=== PATIENT | female | born 1945 | race Caucasian/White ===

== ENCOUNTER 2022-04-09 19:07 | Inpatient (IN) | payer MEDICAID ==
[~2022-04-09] VITALS: Ht 139 cm; Wt 75.7 kg
[2022-04-09] MEDS ORDERED: ANTACID SUSP 30 ML UDC (MYLANTA) PO PRN (21:45)
[2022-04-09] MEDS ORDERED: NS IV 500 ML 500 ML IV PRN (21:45)
[2022-04-09] MEDS ORDERED: polyethylene glycoL POWDER 17 GM (MIRALAX) PACK PO PRN (21:45)
[2022-04-09] MEDS ORDERED: LACTULOSE SYRUP 10GM/15ML (ENULOSE) 30ML UDC PO PRN (21:45)
[2022-04-09] MEDS ORDERED: ONDANSETRON 4 MG (ZOFRAN) ORAL DISSOLVE TAB PO PRN (21:45)
[2022-04-09] MEDS ORDERED: ACETAMINOPHEN 325 MG TABLET PO PRN (21:45)
[2022-04-09] MEDS ORDERED: MELATONIN 3 MG TABLET PO PRN (21:45)
[2022-04-09] MEDS ORDERED: MILK OF MAGNESIA 400 MG/5 ML 30 ML UDC PO PRN (21:45)
[2022-04-09] MEDS ORDERED: BISACODYL 10 MG SUPP (DULCOLAX) PR PRN (21:45)
[2022-04-09] MEDS ORDERED: ONDANSETRON 4 MG/2 ML (SDV) Z0FRAN IV PRN (21:45)
[2022-04-09] MEDS ORDERED: CALCIUM CARBONATE 500 MG (TUMS) TAB.CHEW PO PRN (21:45)
--- NOTE | 2022-04-09 23:55 | Tele-ICU Progress Note ---
Progress Note HTN, HLD, DM, COPD on home O2, SIADH, chronic vicente, TIA who is being transferred from outside ER for "respiratory failure". Per outside report has had increasing SOB x1 week. EMS reported 60% on home 2L, improved on NRB (still on). Rocephin 2 g given prior to leaving NH, Lovenox 1 mg/kg at OSH tonight at 1900, ASA, metoprolol, lasix WBC 13.8 Hg 10.9 Na 128 K 4.0 Cl 89 CO2 31 BUN 13 Creat 0.34 B[place] [address] [place] [address] at 1751, 35830 at 1915 ABG 7.39/58/73/34 COVID (-) Flu (-) CXR Intersitial opacities bilaterally could reflect edema vs pneumoia. PNA in LL retrocardia region can not be ruled out. - hypoxia: patient with significant hypoxia, PaO2 only 73 on NRB. Only requires 2L at baseline. Supportive care ongoing. Empiric treatment for pneumonia. But wtth elevated troponin very suspicious for PE. CTA and LE dopplers ordered. No urgency, has already received therapuetic lovenox. - pneumonia: can not exclude on imaging. Empiric rocephin already initiated. Will send procal with AM labs. Eval parenchyma on CT, since it is being obtained for PE. Continue rocephin for now. Has been hypertensive since arrival, no evidence of shock. However, did not see lactic from ED. Will send along with cultures. Send UA and culture, high risk for UTI as well. - DM: ISS - Troponemia: local trop 5.2, correlating to hstrop of 5200<--31471<--[id number]. Requested cardiology updated who made patient NPO for possible cath in AM. In light of that, will delay CTA so she does not get 2 contrast loads within a couple hours. Already receiving therapuetic lovenox, will not alter care. ASA, metoprolol given at OSH. DNR per [place] records Focused Exam Height, Weight, BMI Height: '" Weight: lbs. oz. kg; 215.74 BMI Method: ALPHONSE HOLLAND MD Apr 09, 2022 23:55
[2022-04-10 01:47] LABS: BILIRUBIN,URINE NEGATIVE (NEGATIVE); CLARITY,URINE CLOUDY; COLOR,URINE YELLOW; GLUCOSE, URINE (UA) NEGATIVE (NEGATIVE); KETONES,URINE NEGATIVE (NEGATIVE); LEUKOCYTE ESTERASE ,URINE 3+ (NEGATIVE); NITRITE,URINE NEGATIVE (NEGATIVE); PH,URINE 5.5 (5-9); PROTEIN,URINE NEGATIVE (NEGATIVE)
[2022-04-10 01:58] LABS: BACTERIA,URINE FEW /HPF; RBC,URINE RARE /HPF; WBC,URINE 25-50 /HPF
[2022-04-10 03:18] LABS: BASOPHILS % (AUTO) 0 % (0-10); EOSINOPHILS # (AUTO) 0.1 10^3/uL (0.0-0.3); EOSINOPHILS % (AUTO) 1 % (0-10); HEMATOCRIT 33 % (35-52); HEMOGLOBIN 10.7 g/dL (11.5-16.0); LYMPHOCYTES # (AUTO) 0.7 10^3/uL (1.0-4.0); LYMPHOCYTES % (AUTO) 5 % (12-44); MEAN CORPUSCULAR HEMOGLOBIN 27 pg (25-34); MEAN CORPUSCULAR HGB CONC 32 g/dL (32-36); MEAN CORPUSCULAR VOLUME 84 fL (80-99); MEAN PLATELET VOLUME 9.9 fL (9.0-12.2); MONOCYTES # (AUTO) 1.1 10^3/uL (0.0-1.0); MONOCYTES % (AUTO) 7 % (0-12); NEUTROPHILS # (AUTO) 12.8 10^3/uL (1.8-7.8); NEUTROPHILS % (AUTO) 86 % (42-75); PLATELET COUNT 217 10^3/uL (130-400); WHITE BLOOD COUNT 14.9 10^3/uL (4.3-11.0)
[2022-04-10 03:28] LABS: POTASSIUM 3.5 MMOL/L (3.6-5.0)
[2022-04-10 03:29] LABS: CALCIUM 8.8 MG/DL (8.5-10.1)
[2022-04-10 03:34] LABS: CREATININE SERUM 0.58 MG/DL (0.60-1.30)
[2022-04-10 03:36] LABS: MAGNESIUM 1.6 MG/DL (1.6-2.4)
[2022-04-10 03:45] LABS: LYMPHOCYTES % (MANUAL) 6 %; MONOCYTES % (MANUAL) 5 %; NEUTROPHILS % (MANUAL) 88 %
[2022-04-10 03:46] LABS: POLYCHROMASIA SLIGHT
[2022-04-10] MEDS: POTASSIUM CL 10MEQ/50ML IVPB 50 ML IV SCH ×3 (06:49→09:48)
[2022-04-10] MEDS: KCL 20 MEQ TAB (K-DUR) PO SCH (06:49)
[2022-04-10] MEDS: MAGNESIUM 1 GM/100 ML IVPB 100 ML IV SCH ×3 (06:49→09:49)
[2022-04-10] MEDS: inSUlin ASPART (NovoLOG) 1 UNIT/0.01 ML (CHARGE PER UNIT) SC SCH ×4 (06:50→18:00)
--- NOTE | 2022-04-10 08:31 | Diagnostic Imaging Report ---
EXAMINATION: Chest, 1 view. HISTORY: Respiratory failure. COMPARISON: None available. FINDINGS: There is cardiomegaly with central pulmonary vascular congestion and patchy opacities throughout both lungs. There is relative sparing of the left lung apex. No large pleural effusion or pneumothorax. IMPRESSION: Cardiomegaly with central pulmonary vascular congestion and findings suggestive of pulmonary edema. Dictated by: Dictated on workstation # [id number]
[2022-04-10 08:42] LABS: ABG BASE EXCESS 15.7 MMOL/L (-2.5-2.5); ABG OXYGEN SATURATION 96 % (94-100); ABG PH 7.36 (7.37-7.43); ABG PO2 72 MMHG (79-93)
[2022-04-10 08:45] LABS: ABG PCO2 75 MMHG (35-45); ABG TCO2 44.3 MMOL/L (21.0-31.0); ALLENS TEST YES-POS; INSPIRED O2 15 L; PATIENT TEMP 36.5; VENTILATOR NO
--- NOTE | 2022-04-10 08:51 | Consultation-Cardiology ---
HPI-Cardiology Cardiology Consultation Date of Consultation 04/10/22 Date of Admission Time Seen by Provider: 08:46 Indication: Shortness of breath HPI 76-year-old lady with history of diabetes mellitus, hypertension. Started to have increasing shortness of breath. Came into the emergency room at [facility] and she was hypoxemic. She was started on oxygen. Noted to have EKG changes and elevated troponin and she was transferred to our institution. Patient denied any chest pain but had some discomfort in the past few weeks in her chest. Reported that she had a heart cath many years in the past in [facility] and she was told that they could not open her artery or if she did not need intervention. Patient is not sure about that condition but she is confident that she did not have a stent placed. 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 No chest pain usually. No syncope or near syncopal episode. Patient has been hypoxemic since admission. Home Medications & Allergies Allergies: Coded Allergies: No Allergy Information Available (Unverified , 04/09/22) Home Medication List Reviewed: Yes HMW-Gtojkc-Mbpthm Hx Patient Social History Employed/Student: retired Smoking Status: Former Smoker Have you traveled recently?: No Alcohol Use?: No Past Medical History Discussed below Family Medical History Significant Family History: No Pertinent Family Hx Review of Systems-General Review of Systems Constitutional: see HPI, malaise, weakness EENTM: see HPI Respiratory: see HPI; No cough, No dyspnea on exertion, No hemoptysis, No orthopnea, No phlegm; short of breath; No stridor, No wheezing, No other Cardiovascular: see HPI, chest pain; No edema, No Hx of Intervention, No palpitations, No syncope, No vascular heart diseas, No other Gastrointestinal: no symptoms reported, see HPI Genitourinary: no symptoms reported, see HPI Musculoskeletal: no symptoms reported, see HPI Skin: no symptoms reported, see HPI Psychiatric/Neurological: No Symptoms Reported, See HPI Reviewed Test Results Reviewed Test Results Lab Laboratory Tests Test 04/09/22 22:08 04/09/22 23:42 04/09/22 23:57 04/10/22 01:40 Range/Units Troponin I 5.233 *H <0.028 NG/ML Glucometer 131 H 70-110 MG/DL Lactic Acid Level 0.88 0.50-2.00 MMOL/L Urine Color YELLOW Urine Clarity CLOUDY Urine pH 5.5 5-9 Urine Specific Alexander 1.020 1.016-1.022 Urine Protein NEGATIVE NEGATIVE Urine Glucose (UA) NEGATIVE NEGATIVE Urine Ketones NEGATIVE NEGATIVE Urine Nitrite NEGATIVE NEGATIVE Urine Bilirubin NEGATIVE NEGATIVE Urine Urobilinogen 0.2 < = 1.0 MG/DL Urine Leukocyte Esterase 3+ H NEGATIVE Urine RBC (Auto) TRACE-I H NEGATIVE Urine RBC RARE /HPF Urine WBC 25-50 H /HPF Urine Squamous Epithelial Cells 5-10 /HPF Urine Crystals NONE /LPF Urine Bacteria FEW H /HPF Urine Casts PRESENT /LPF Urine Hyaline Casts 2-5 H /LPF Urine Mucus NEGATIVE /LPF Urine Culture Indicated YES Test 04/10/22 03:02 04/10/22 06:36 04/10/22 08:35 Range/Units White Blood Count 14.9 H 4.3-11.0 10^3/uL Red Blood Count 4.00 3.80-5.11 10^6/uL Hemoglobin 10.7 L 11.5-16.0 g/dL Hematocrit 33 L 35-52 % Mean Corpuscular Volume 84 80-99 fL Mean Corpuscular Hemoglobin 27 25-34 pg Mean Corpuscular Hemoglobin Concent 32 32-36 g/dL Red Cell Distribution Width 15.6 H 10.0-14.5 % Platelet Count 217 130-400 10^3/uL Mean Platelet Volume 9.9 9.0-12.2 fL Immature Granulocyte % (Auto) 1 % Neutrophils (%) (Auto) 86 H 42-75 % Lymphocytes (%) (Auto) 5 L 12-44 % Monocytes (%) (Auto) 7 0-12 % Eosinophils (%) (Auto) 1 0-10 % Basophils (%) (Auto) 0 0-10 % Neutrophils # (Auto) 12.8 H 1.8-7.8 10^3/uL Lymphocytes # (Auto) 0.7 L 1.0-4.0 10^3/uL Monocytes # (Auto) 1.1 H 0.0-1.0 10^3/uL Eosinophils # (Auto) 0.1 0.0-0.3 10^3/uL Basophils # (Auto) 0.0 0.0-0.1 10^3/uL Immature Granulocyte # (Auto) 0.1 0.0-0.1 10^3/uL Neutrophils % (Manual) 88 % Lymphocytes % (Manual) 6 % Monocytes % (Manual) 5 % Polychromasia SLIGHT Sodium Level 130 L 135-145 MMOL/L Potassium Level 3.5 L 3.6-5.0 MMOL/L Chloride Level 84 L 98-107 MMOL/L Carbon Dioxide Level 33 H 21-32 MMOL/L Anion Gap 13 5-14 MMOL/L Blood Urea Nitrogen 13 7-18 MG/DL Creatinine 0.58 L 0.60-1.30 MG/DL Estimat Glomerular Filtration Rate 95 BUN/Creatinine Ratio 22 Glucose Level 122 H 70-105 MG/DL Calcium Level 8.8 8.5-10.1 MG/DL Magnesium Level 1.6 1.6-2.4 MG/DL Troponin I 5.466 *H <0.028 NG/ML Procalcitonin 0.22 H <0.10 NG/ML Glucometer 114 H 70-110 MG/DL Blood Gas Puncture Site R RAD Blood Gas Patient Temperature 36.5 Arterial Blood pH 7.36 L 7.37-7.43 Arterial Blood Partial Pressure CO2 75 *H 35-45 MMHG Arterial Blood Partial Pressure O2 72 L 79-93 MMHG Arterial Blood HCO3 42 *H 23-27 MMOL/L Arterial Blood Total CO2 44.3 *H 21.0-31.0 MMOL/L Arterial Blood Oxygen Saturation 96 94-100 % Arterial Blood Base Excess 15.7 H -2.5-2.5 MMOL/L Willis Test YES-POS Blood Gas Ventilator Setting NO Blood Gas Inspired Oxygen 15 L Physical Exam Physical Exam Vital Signs Vital Signs - First Documented 04/09/22 04/10/22 21:15 07:34 Temp 36.3 Pulse 85 Resp 26 B/P (MAP) 148/81 (103) Pulse Ox 92 O2 Delivery Non Rebreather O2 Flow Rate 15.00 Capillary Refill : Height, Weight, BMI Height: '" Weight: lbs. oz. kg; 215.74 BMI Method: General Appearance: WD/WN, Mild Distress Eyes: Bilateral Eye Normal Inspection, Bilateral Eye PERRL, Bilateral Eye EOMI HEENT: PERRL/EOMI, TMs Normal, Normal ENT Inspection, Pharynx Normal, Moist Mucous Membranes Neck: Full Range of Motion, Normal Inspection, Non Tender, Supple, Carotid Bruit Respiratory: Chest Non Tender, Normal Breath Sounds, No Accessory Muscle Use, No Respiratory Distress, Crackles Cardiovascular: Regular Rate, Rhythm, No Edema, No JVD, Normal Peripheral Pulses, Systolic Murmur, Gallop/S3 Gastrointestinal: Normal Bowel Sounds, No Organomegaly, No Pulsatile Mass, Non Tender, Soft Back: Normal Inspection, No CVA Tenderness, No Vertebral Tenderness Extremity: Normal Capillary Refill, Normal Inspection, Normal Range of Motion, Non Tender, No Calf Tenderness, No Pedal Edema Neurologic/Psychiatric: Alert, Oriented x3, No Motor/Sensory Deficits, Normal Mood/Affect Skin: Normal Color, Warm/Dry Lymphatic: No Adenopathy A/P-Cardiology Admission Diagnosis Acute respiratory failure Non-ST elevation myocardial infarction Coronary artery disease Congestive heart failure Assessment/Plan Acute hypoxemic respiratory failure. Severe hypoxemia, hypercapnia Work-up showed DVT with high risk for pulmonary embolism Starting Lovenox treatment. Non-ST elevation myocardial infarction, elevation in troponin. Received aspirin and Lovenox and lumbar emergency room Starting aspirin and Lovenox and beta-blockers Discussed in length the need for cardiac catheterization, patient requested to wait to think about it and discuss it with her family and she will let us know i f they decided to proceed with the procedure Addendum, cardiac catheterization carried out showed heavily calcified coronary system with eccentric calcified plaque at the ostial LAD with 70% stenosis, proximal and mid LAD with 70 to 90% stenosis, total occlusion of the right PDA with collateral filling from the left system, calcified right coronary artery and circumflex artery with moderate disease. 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 Incidental finding total occlusion of the right SFA Continue to maximize medical therapy at this point. Patient will be referred for evaluation for bypass surgery Questionable history of coronary artery disease, patient reporting cardiac catheterization in the remote past that did not require resulted in a stent or intervention Congestive heart failure, acute left ventricular dysfunction I will evaluate 2D echocardiogram Started on Lopressor Planning to add losartan Hypertension, monitor blood pressure after the medication change Questionable hyperlipidemia I will evaluate lipid profile Diabetes mellitus, followed and managed by primary care physician History of tobaccoism in the remote past MIKE SHELTON MD Apr 10, 2022 08:51
[2022-04-10] MEDS ORDERED: ENOXAPARIN 150 MG/ML (LOVENOX) SYR SQ SCH (09:00)
[2022-04-10] MEDS: RT-ALBUTEROL/IPRATROPIUM 3 ML (DUONEB) VIAL INH SCH ×3 (09:06→22:14)
--- NOTE | 2022-04-10 09:14 | Diagnostic Imaging Report ---
EXAM: US VENOUS LOWER EXT YOSI. INDICATION: Deep venous thrombosis. Acute respiratory failure. COMPARISON: None. TECHNIQUE: Duplex, grayscale, and color-flow imaging of the bilateral lower extremities venous system was performed FINDINGS: The bilateral common femoral vein, superficial femoral vein, profunda femoris, and popliteal veins are normal. These vessels show normal compressibility, color flow, and Doppler augmentation. The deep calf veins of the right lower extremity are occluded with no appreciable flow by color Doppler. The deep calf veins of the left lower extremity demonstrate no distinct intraluminal thrombus where seen. IMPRESSION: 1. Deep venous thrombosis involving the right lower extremity veins below the level of the knee. 2. No DVT in the left lower extremity. 3. The report was called to the patient's nurse Kirsty by [email or web address]@9:12 AM. Dictated by: Dictated on workstation # [id number]
--- NOTE | 2022-04-10 09:24 | Tele-ICU Progress Note ---
Subjective Date Seen by a Provider: Apr 10, 2022 Time Seen by a Provider: 12:48 Subjective/Events-last exam Tele-ICU Physician , Progress Note ) Available chart/ vitals / labs / Images reviewed Video assessment done using teleICU camera, rest of exam as per RN Discussed with RN Events overnight : Afebrile hemodynamically stable Respiratory - on bipap I/O = Drips: Pressors- no Consultants: Hospital course:, she had cardiac cath today and found to have multi vessel disease A/P CVS/HTN non stemi.with MV cad and pad, needs cabg per cards. DVT RT LEG CHF PER CARDS Rhythem Echo. LVH, EF 55-60%, PAH Respiratory System. respiratory failure requiring bipap currently on 100% fio2 and wean as tolerated. pneumonia. cont. Rocephin GI Kidneys. bun/cr ok diuresis per cardiology . DVT. 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 Discussed with RN to reach out if any questions or concerns Sepsis Event Evaluation Height, Weight, BMI Height: '" Weight: lbs. oz. kg; 215.74 BMI Method: Focused Exam Lactate Level 04/09/22 23:57: Lactic Acid Level 0.88 Exam Exam Patient acknowledged, consented, and participated in this virtual visit which was conducted using real time audio/video Vital Signs Date Time Temp Pulse Resp B/P (MAP) Pulse Ox O2 Delivery O2 Flow Rate FiO2 04/10/22 09:07 97 Non Rebreather 15.00 04/10/22 09:00 90 23 128/71 (90) 97 Non Rebreather 15.00 04/10/22 08:00 90 27 127/92 (104) 98 Non Rebreather 15.00 04/10/22 07:34 36.3 04/10/22 07:00 84 04/10/22 07:00 82 18 127/75 (92) 93 Non Rebreather 15.00 04/10/22 06:00 84 20 130/74 (92) 97 Non Rebreather 15.00 04/10/22 05:00 89 24 141/69 (93) 98 Non Rebreather 15.00 04/10/22 04:00 86 24 134/63 (86) 96 Non Rebreather 15.00 04/10/22 03:12 96 Non Rebreather 15.00 04/10/22 03:07 96 04/10/22 03:00 89 27 155/80 (105) 97 Non Rebreather 15.00 04/10/22 02:00 84 19 118/93 (101) 96 Non Rebreather 15.00 04/10/22 01:00 84 23 132/69 (90) 94 Non Rebreather 15.00 04/10/22 01:00 83 04/10/22 00:28 Non Rebreather 15.00 04/10/22 00:00 86 27 142/78 (99) 90 Non Rebreather 15.00 04/09/22 23:00 86 26 118/73 (88) 95 Nasal Cannula 5.00 04/09/22 22:48 82 04/09/22 22:27 90 Non Rebreather 15.00 04/09/22 22:00 89 28 118/79 (92) 92 Non Rebreather 15.00 04/09/22 21:15 85 26 148/81 (103) 92 Non Rebreather 15.00 I & O 04/10/22 07:00 Intake Total 100 ml Output Total 450 ml Balance -350 ml Height & Weight Height: '" Weight: lbs. oz. kg; 215.74 BMI Method: General Appearance: WD/WN, Mild Distress HEENT: PERRL/EOMI, TMs Normal, Normal ENT Inspection, Pharynx Normal, Moist M ucous Membranes Neck: Full Range of Motion, Normal Inspection, Non Tender, Supple, Carotid Bruit Respiratory: Chest Non Tender, Normal Breath Sounds, No Accessory Muscle Use, No Respiratory Distress, Crackles Cardiovascular: Regular Rate, Rhythm, No Edema, No JVD, Normal Peripheral Pulses, Systolic Murmur, Gallop/S3 Extremity: Normal Capillary Refill, Normal Inspection, Normal Range of Motion, Non Tender, No Calf Tenderness, No Pedal Edema Neurologic/Psychiatric: Alert, Oriented x3, No Motor/Sensory Deficits, Normal Mood/Affect Skin: Normal Color, Warm/Dry Lymphatic: No Adenopathy Results Lab Laboratory Tests 04/10/22 03:02 Assessment/Plan Assessment/Plan cad chf acute respiratory failure pad pah dvt possible pneumonia Critical Care: Critically Ill Patient Time spent with patient (mins): 20 JOSEPH TINSLEY MD Apr 10, 2022 09:24
[2022-04-10 09:28] VITALS: BP 128/71
[2022-04-10] MEDS: ASPIRIN E.C. 81 MG (ECOTRIN) TAB PO SCH (09:47)
[2022-04-10] MEDS: FUROSEMIDE 40 MG/4 ML INJ (LASIX) IVP SCH ×2 (09:47→17:18)
[2022-04-10] MEDS: DOCUSATE SODIUM 100 MG (COLACE) CAP PO SCH ×2 (09:47→20:24)
[2022-04-10] MEDS: cefTRIAXone 1 GM PRE-MIX 50 ML IV SCH (09:47)
[2022-04-10] MEDS: SENNOSIDES 8.6 MG (SENOKOT) TAB PO SCH ×2 (09:48→20:24)
[2022-04-10] MEDS: ENOXAPARIN 80 MG/0.8 ML (LOVENOX) SYR SC SCH ×2 (09:48→20:25)
[2022-04-10] MEDS: meTOprolol TARTRATE 25 MG (LOPRESSOR) TABLET PO SCH ×2 (09:48→20:24)
[2022-04-10] MEDS: PANTOPRAZOLE 40 MG (PROTONIX) TAB PO SCH (09:48)
[2022-04-10] MEDS ORDERED: HEParin (CATH LAB) 2,000 ML IV ONE (10:04)
[2022-04-10] MEDS ORDERED: LIDOCAINE 1% INJ 20 ML VIAL ONE (10:04)
[2022-04-10] MEDS ORDERED: NS IV 1000 ML 1,000 ML ONE (10:05)
[2022-04-10] MEDS ORDERED: MIDAZOLAM 5 MG/5 ML (VERSED) VIAL ONE (10:08)
[2022-04-10] MEDS ORDERED: VERAPAMIL 5 MG/2 ML (CALAN) VIAL IV ONE (10:08)
[2022-04-10] MEDS ORDERED: fentaNYL INJ 100 MCG/2 ML AMP ONE (10:08)
[2022-04-10] MEDS ORDERED: HEParin 1000 UNIT/ML (10ML VIAL) FOR BOLUS ONE (10:09)
[2022-04-10] MEDS ORDERED: NITRO DRIP 25000 MCG/D5W 250 ML IV ONE (10:09)
[2022-04-10] MEDS ORDERED: PATIENT MAY USE OWN MEDS, ALL PO SCH (12:00)
--- NOTE | 2022-04-10 12:04 | Cardiac Cath Report ---
Cardiac Cath Report Physician (s)/Employee Operations Examiner (s) Physician MIKE SHELTON MD Pre-Procedure Diagnosis Pre-Procedure Diagnosis: CAD Post-Procedure Note Procedure Start Date: Apr 10, 2022 Name of Procedure: Left heart catheterization Aortic arch angiogram Findings/Procedure Note PROCEDURE NOTE: 76-year-old lady admitted with acute respiratory failure, shortness of breath, hypoxemia and hypercapnia, identified to have acute pulmonary embolism. Had EKG changes with elevation in troponin, discussed cardiac catheterization, initially patient requested to wait and discuss it with her family then she agreed on the procedure. After explaining the procedure to the patient, all pros and cons were explained, all questions were answered. The patient signed the consent and then she was placed on the cardiac catheterization laboratory. Groin was prepped SL fashion local anesthesia was used. Sheath placed in the right radial artery, I had difficulty advancing the wire, I used baby J-wire and advanced that and I was unable to advance [place] catheter through the junction of the brachiocephalic a rtery with the aorta, I did angiogram, there does not appear to to have any dissection. I used a long J-wire and exchanged the catheter and used Meaghan right catheter and I was able to advance it to the right cusp but I was unable to manipulate the catheter or move it to due to the heavy calcification. Subsequently I decided to abort the radial attempt and proceeded with access to the femoral artery. Meaghan right and left catheter were used to access the coronary system. Pigtail was used to access the left ventricular cavity. Left ventriculogram was not done, pressure was measured Aortic arch angiogram was done Incidental finding during cardiac catheterization, angiogram was done to evaluate sheath position which showed total occlusion of the right SFA which is heavily calcified At the end of the procedure the sheath was removed. Sheath was removed from the radial artery and vascular band was used and the groin artery angiogram showed occluded SFA and the sheath was at the ostium of the deep femoral artery, sheath was removed with manual pressure FINDINGS: Hemodynamics LV 127/20, end-diastolic pressure of 20 Aorta 129/58 mean of 59 ANATOMY: Left Main has heavy calcification, fairly short artery Left Anterior Descending is heavily calcified with eccentric plaque at the ostium of the LAD with 70% stenosis, the proximal and mid LAD has heavy calcification with 2 area of 70% stenosis Left Circumflex is heavily calcified with mild to moderate disease nonobstructive disease, nondominant artery Right Coronary Artery is heavily calcified artery, I can visualize the whole artery without contrast. The right PDA is occluded and receiving collaterals from the left system otherwise mild to moderate disease LV Gram was not done, pressure was measured, fluoroscopy showed heavily calcified mitral ring and I was able to visualize the aortic leaflet due to calcification Aorta evaluation done with aortic arch angiogram showed heavily calcified aortic arch, no dissection or aneurysm, bovine type aorta with calcified brachiocephalic artery with unknown origin from the left side, no significant obstructive disease was noted in the left carotid or left subclavian artery. CONCLUSION: 1. Heavily calcified coronary system, I was able to visualize the arteries with fluoroscopy without contrast. 2. Calcified eccentric plaque at the ostium, proximal and mid LAD with multiple area of 70-90% stenosis 3. Total occlusion of the right PDA getting filled by collaterals from the left system with a heavily calcified right coronary artery 4. 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 Heavily calcified aortic valve and mitral annulus 6. Incidental finding total occlusion of the right SFA at its ostium DISCUSSION AND RECOMMENDATION: Continue to maximize medical therapy, we will discussed the possibility of referral for evaluation for bypass surgery. Patient is not a suitable candidate for surgery at this point due to the acute pulmonary embolism and respiratory failure Anesthesia Type: Conscious Sedation Estimated blood loss (mL): 25 ml Contrast Amount: 90 ml Total Radiation Dose: 578 mGy Post-Procedure Diagnosis Post-operative diagnosis: Acute respiratory failure Acute pulmonary embolism Non-ST elevation myocardial infarction Coronary artery disease MIKE SHELTON MD Apr 10, 2022 12:04
[2022-04-10] MEDS: NS IV 1000 ML 1,000 ML IV SCH ×2 (12:15→20:29)
[2022-04-10 15:29] VITALS: BP 130/70
[2022-04-10 15:43] LABS: ABG BASE EXCESS 14.6 MMOL/L (-2.5-2.5); ABG OXYGEN SATURATION 90 % (94-100); ABG PO2 60 MMHG (79-93)
[2022-04-10 15:53] LABS: ABG PCO2 80 MMHG (35-45); ABG PH 7.33 (7.37-7.43); ABG TCO2 43.8 MMOL/L (21.0-31.0)
[2022-04-10 15:54] LABS: ALLENS TEST YES-POS; INSPIRED O2 50; PATIENT TEMP 36.1; VENTILATOR NO
[2022-04-10 16:19] VITALS: BP 107/72
--- NOTE | 2022-04-10 17:16 | History & Physical-Hospitalist ---
History of Present Illness HPI/Chief Complaint Irvin Lopez is a 76 year old female with PMH HTN, HLD, T2DM, TIA, who presented with shortness of breath. She has been at a skilled nursing in [place], [place]. She went to the ER at [facility]. She denies chest pain and palpitations. She denies cough. She denies fevers and chills. She has not noticed leg swelling. She denies abdominal pain, nausea, vomiting, and diarrhea. Source: patient Exam Limitations: no limitations Date Seen 04/10/22 Time Seen by a Provider: 09:05 Attending Physician No,Local Physician PCP Admitting Physician: Alysha Price MD Attending Physician: Alysha Price MD Referring Physician Date of Admission Apr 09, 2022 at 20:57 Home Medications & Allergies Home Medications Reviewed patient Home Medication Reconciliation performed by pharmacy medication reconciliations equipment maintenance technician and/or nursing. Patients Allergies have been reviewed. Allergies Allergies Coded Allergies No Allergy Information Available (Rztxqvlcsd26/14/22) Past Szicdoe-Gofxzp-Qzztyq Hx Patient Social History Employed/Student: retired Tobacco Use?: No Tobacco type used: Cigarettes Smoking Status: Former Smoker Substance use?: No Alcohol Use?: No Immunizations Up To Date Tetanus Booster (TDap): Unknown Hepatitis A: No Hepatitis B: No Current Status status: No Advance Directives: No Advance Directive Location: Copy placed in chart Communicates: Verbally Primary Language: Ukrainian Preferred Spoken Language: Ukrainian Is interpretation needed?: No Sensory deficits: Vision impairment Implanted or Applied Medical D: None Family Medical History No Pertinent Family Hx Review of Systems Constitutional: no symptoms reported EENTM: no symptoms reported Respiratory: short of breath Cardiovascular: no symptoms reported Gastrointestinal: no symptoms reported Physical Exam Physical Exam Vital Signs Vital Signs - First Documented 04/09/22 04/10/22 21:15 07:34 Temp 36.3 Pulse 85 Resp 26 B/P (MAP) 148/81 (103) Pulse Ox 92 O2 Delivery Non Rebreather O2 Flow Rate 15.00 Capillary Refill : Less Than 3 Seconds Height, Weight, BMI Height: '" Weight: lbs. oz. kg; 215.74 BMI Method: General Appearance: No Apparent Distress, Obese HEENT: PERRL/EOMI, Pharynx Normal Neck: Normal Inspection, Supple Respiratory: No Respiratory Distress, Decreased Breath Sounds Cardiovascular: Regular Rate, Rhythm, No Murmur, Normal Peripheral Pulses Gastrointestinal: Normal Bowel Sounds, Soft, Tenderness (suprapubic) Extremity: Non Tender, Pedal Edema, Swelling Neurologic/Psychiatric: Alert, Normal Mood/Affect Skin: Normal Color, Warm/Dry Results Results/Procedures Labs Laboratory Tests 04/10/22 03:02 Patient resulted labs reviewed. Imaging: Reviewed Imaging Report Assessment/Plan Admission Diagnosis Acute respiratory failure with hypoxia and hypercapnia Admission Status: Inpatient Order (span 2 midnights) Reason for Inpatient Admission: Respiratory failure Assessment and Plan Acute respiratory failure with hypoxia and hypercapnia Acute DVT Likely pulmonary embolism Significant oxygen requirement ABG with acute hypercapnia BiPAP as needed TeleICU consulted Venous doppler with acute lower extremity DVT Therapeutic Lovenox CTA chest tomorrow NSTEMI Multivessel CAD Troponin significantly elevated Cardiology consulted Left heart cath with multi-vessel disease Will discuss possible CABG evaluation UTI Urine culture pending Rocephin HTN HLD T2DM TIA Resume home meds once med rec completed Diagnosis/Problems Diagnosis/Problems (1) Acute respiratory failure with hypoxia and hypercapnia Status: Acute (2) DVT (deep venous thrombosis) Status: Acute Qualifiers: DVT location: lower extremity (3) NSTEMI (non-ST elevation myocardial infarction) Status: Acute (4) Multiple vessel coronary artery disease Status: Acute (5) UTI (urinary tract infection) Status: Acute (6) Obesity Status: Chronic (7) HTN (hypertension) Status: Chronic (8) HLD (hyperlipidemia) Status: Chronic (9) T2DM (type 2 diabetes mellitus) Status: Chronic ALYSHA PRICE MD Apr 10, 2022 17:16
[2022-04-10 18:04] LABS: ABG BASE EXCESS 13.8 MMOL/L (-2.5-2.5); ABG OXYGEN SATURATION 94 % (94-100); ABG PCO2 63 MMHG (35-45); ABG PH 7.41 (7.37-7.43); ABG PO2 64 MMHG (79-93)
[2022-04-10 18:08] LABS: ABG TCO2 41.2 MMOL/L (21.0-31.0)
[2022-04-10 18:09] LABS: ALLENS TEST YES-POS; INSPIRED O2 50; PATIENT TEMP 36.6; VENTILATOR NO
[2022-04-10 22:14] VITALS: BP 124/58
[2022-04-11] MEDS: inSUlin ASPART (NovoLOG) 1 UNIT/0.01 ML (CHARGE PER UNIT) SC SCH ×4 (00:25→18:34)
[2022-04-11] MEDS: RT-ALBUTEROL/IPRATROPIUM 3 ML (DUONEB) VIAL INH SCH ×6 (02:34→22:24)
[2022-04-11 06:02] LABS: ABG BASE EXCESS 12.7 MMOL/L (-2.5-2.5); ABG OXYGEN SATURATION 84 % (94-100); ABG PO2 56 MMHG (79-93)
[2022-04-11 06:04] LABS: ABG PCO2 86 MMHG (35-45); ABG PH 7.29 (7.37-7.43); ABG TCO2 42.2 MMOL/L (21.0-31.0); ALLENS TEST YES-POS; INSPIRED O2 50%; VENTILATOR NO
[2022-04-11 06:14] LABS: BASOPHILS % (AUTO) 0 % (0-10); EOSINOPHILS % (AUTO) 0 % (0-10); HEMATOCRIT 33 % (35-52); HEMOGLOBIN 10.1 g/dL (11.5-16.0); LYMPHOCYTES # (AUTO) 0.4 10^3/uL (1.0-4.0); LYMPHOCYTES % (AUTO) 3 % (12-44); MEAN CORPUSCULAR HEMOGLOBIN 26 pg (25-34); MEAN CORPUSCULAR HGB CONC 31 g/dL (32-36); MEAN CORPUSCULAR VOLUME 87 fL (80-99); MEAN PLATELET VOLUME 10.1 fL (9.0-12.2); MONOCYTES % (AUTO) 6 % (0-12); NEUTROPHILS % (AUTO) 90 % (42-75); PLATELET COUNT 197 10^3/uL (130-400); WHITE BLOOD COUNT 15.6 10^3/uL (4.3-11.0)
[2022-04-11] MEDS: NS IV 1000 ML 1,000 ML IV SCH (06:16)
[2022-04-11 06:26] LABS: POTASSIUM 3.8 MMOL/L (3.6-5.0)
[2022-04-11 06:28] LABS: CALCIUM 8.4 MG/DL (8.5-10.1)
[2022-04-11 06:32] LABS: CREATININE SERUM 0.59 MG/DL (0.60-1.30)
[2022-04-11 06:35] LABS: MAGNESIUM 1.8 MG/DL (1.6-2.4)
[2022-04-11] MEDS: POTASSIUM CL 10MEQ/50ML IVPB 50 ML IV SCH (06:43)
[2022-04-11] MEDS: KCL 20 MEQ TAB (K-DUR) PO SCH (06:43)
[2022-04-11] MEDS: MAGNESIUM 1 GM/100 ML IVPB 100 ML IV SCH (06:43)
[2022-04-11 06:46] VITALS: BP 134/63
[2022-04-11 06:49] VITALS: BP 134/63
[2022-04-11] MEDS: FUROSEMIDE 40 MG/4 ML INJ (LASIX) IVP SCH ×2 (07:02→18:36)
--- NOTE | 2022-04-11 08:12 | Diagnostic Imaging Report ---
EXAMINATION: Chest radiograph, portable AP view. DATE: 04/11/2022 2:50 AM. INDICATION: 76-year-old female, congestive heart failure, shortness of breath. COMPARISON: April 10, 2022. FINDINGS: Heart size and mediastinal contours are unchanged. There is no identified pneumothorax. Lung volumes are low. There are multifocal interstitial and/or alveolar opacities. There is interval increase in consolidation in the left midlung. There are multilevel degenerative changes of the spine. IMPRESSION: Low lung volumes with bilateral interstitial and alveolar opacities which are nonspecific. There is interval increase in consolidation in the left midlung. Dictated by: Dictated on workstation # [id number]
--- NOTE | 2022-04-11 09:43 | Tele-ICU Progress Note ---
Subjective Date Seen by a Provider: Apr 11, 2022 Subjective/Events-last exam This virtual visit was conducted using real time audio/video. Thank you for asking us to see this patient for respiratory insufficiency due to thromboembolic disease, pna. Also NSTEMI. Probable underlying COPD. Recent events: 88% sat earlier. VT increased to 40LPM, 100%. Former smoker. PE: VSS. Obese. O2 sat 97% on 40 LPM. HEENT: No obvious masses, adenopathy or JVD. Chest: diminished on auscultation. CV: RRR S1 S2 No murmur or added sounds. Abd: Non-tender. Bowel sounds Y. : Unremarkable. Marroquin Y. [employer]/psychiatric: Grossly intact. No obvious focal findings. Extremities: Trace edema. Capillary refill < 3 seconds. Skin: unremarkable. Results: Elevated WCC 15.6. Decreased Hb 10.1. AB.29/86/56 on 50%.. CXR: Hyperinflated, B infilts.. Available chart/ vitals / labs / images reviewed. Video assessment done using teleICU camera, rest of exam as per RN. A/P: Respiratory insufficiency: Continue present management with VT, duonebs. Consider Palliative Care consult. Monitor for increasing oxygenation needs. Now DNR/DNI. Critical Care: critically ill patient. Cont. abx., lasix, PPI, SSI, Tio. Discussed with SUSANA Alonso. Asked RN to reach out to eICU if any questions or concerns later. Time spent with patient/coordination of care with other health professionals (mins): 33 Sepsis Event Evaluation Height, Weight, BMI Height: '" Weight: lbs. oz. kg; 218.90 BMI Method: Focused Exam Lactate Level 04/09/22 23:57: Lactic Acid Level 0.88 Exam Exam Patient acknowledged, consented, and participated in this virtual visit which was conducted using real time audio/video Vital Signs Date Time Temp Pulse Resp B/P (MAP) Pulse Ox O2 Delivery O2 Flow Rate FiO2 04/11/22 09:00 116 18 150/85 (106) 100 Vapotherm 40.00 100.00 04/11/22 08:00 112 24 144/69 (94) 100 Vapotherm 40.00 100.00 04/11/22 07:50 Vapotherm 40.00 100.00 04/11/22 07:44 36.3 04/11/22 07:00 108 14 140/78 (98) 100 Vapotherm 25.00 100.00 04/11/22 07:00 106 04/11/22 06:49 36.3 112 97 04/11/22 06:46 112 23 97 50.00 04/11/22 06:00 110 21 134/63 (86) 91 Vapotherm 25.00 100.00 04/11/22 05:00 101 28 134/64 (87) 91 Vapotherm 25.00 100.00 04/11/22 04:00 111 22 127/60 (82) 90 Vapotherm 25.00 100.00 04/11/22 04:00 90 Non Rebreather 15.00 04/11/22 03:00 110 23 142/76 (98) 94 Vapotherm 25.00 100.00 04/11/22 02:35 98 Vapotherm 25.00 60 04/11/22 02:00 104 17 134/61 (85) 100 Vapotherm 25.00 100.00 04/11/22 01:00 110 20 140/67 (91) 100 Vapotherm 25.00 100.00 04/11/22 01:00 110 04/11/22 00:42 Vapotherm 25.00 100 04/11/22 00:00 90 Non Rebreather 15.00 04/11/22 00:00 102 12 109/63 (78) 100 Vapotherm 25.00 100.00 04/10/22 23:00 106 11 125/57 (79) 100 Vapotherm 25.00 100.00 04/10/22 22:14 111 22 99 50.00 04/10/22 22:00 105 18 124/58 (80) 99 Vapotherm 25.00 100.00 04/10/22 21:00 110 23 137/59 (85) 98 Vapotherm 25.00 100.00 04/10/22 20:00 109 23 139/60 (86) 99 Vapotherm 25.00 100.00 04/10/22 20:00 90 Non Rebreather 15.00 04/10/22 19:58 36.3 04/10/22 19:00 111 04/10/22 19:00 110 23 130/59 (82) 99 Vapotherm 25.00 100.00 04/10/22 18:06 93 Vapotherm 25.00 100 04/10/22 18:00 102 19 132/63 (86) 94 Vapotherm 25.00 100.00 04/10/22 17:41 50.00 04/10/22 17:00 102 15 109/60 (76) 91 NIV Bilevel 50.00 04/10/22 16:19 104 14 95 50.00 04/10/22 16:00 102 22 104/53 (70) 94 NIV Bilevel 50.00 04/10/22 15:59 36.0 04/10/22 15:29 95 20 92 50.00 04/10/22 15:00 92 19 106/60 (75) 94 NIV Bilevel 50.00 04/10/22 14:00 98 25 120/87 (98) 96 NIV Bilevel 70.00 04/10/22 13:11 NIV Bilevel 70.00 04/10/22 13:00 95 21 93/55 (68) 96 NIV Bilevel 80.00 04/10/22 12:53 NIV Bilevel 80.00 04/10/22 12:46 99 04/10/22 12:45 93 22 99/62 (74) 98 NIV Bilevel 100.00 04/10/22 12:30 94 19 99/50 (66) 93 NIV Bilevel 100.00 04/10/22 12:15 102 108/64 (79) NIV Bilevel 100.00 04/10/22 12:00 36.3 04/10/22 10:00 93 27 133/69 (90) 97 NIV Bilevel 70.00 04/10/22 09:54 NIV Bilevel 70.00 I & O 04/11/22 07:00 Intake Total 550 ml Output Total 925 ml Balance -375 ml Height & Weight Height: '" Weight: lbs. oz. kg; 218.90 BMI Method: General Appearance: No Apparent Distress, Obese HEENT: PERRL/EOMI, Pharynx Normal Neck: Normal Inspection, Supple Respiratory: No Respiratory Distress, Decreased Breath Sounds Cardiovascular: Regular Rate, Rhythm, No Murmur, Normal Peripheral Pulses Capillary Refill: Less Than 3 Seconds Extremity: Non Tender, Pedal Edema, Swelling Neurologic/Psychiatric: Alert, Normal Mood/Affect Skin: Normal Color, Warm/Dry Lymphatic: No Adenopathy Results Lab Laboratory Tests 04/10/22 03:02 04/11/22 06:06 Assessment/Plan Assessment/Plan See free text. Critical Care: Critically Ill Patient MARJORIE RAY MD Apr 11, 2022 09:43
--- NOTE | 2022-04-11 09:50 | Cardiology Progress Note ---
Subjective Date Seen by Provider: Apr 11, 2022 Time Seen by Provider: 09:46 Subjective/Events-last exam Patient was seen at bedside, still on Vapotherm. Having generalized fatigue and loss of energy Review of Systems General: No Chills, No Night Sweats; Fatigue, Malaise; No Appetite, No Other HEENT: No Head Aches, No Visual Changes, No Eye Pain, No Ear Pain, No Dysp hasia, No Sinus Congestion, No Post Nasal Drip, No Sore Throat, No Other Pulmonary: Dyspnea; No Cough, No Pleuritic Chest Pain, No Other Cardiovascular: No: Chest Pain, Palpitations, Orthopnea, Paroxysmal Noc. Dyspnea, Edema, Lt Headedness, Other Focused Exam Lactate Level 04/09/22 23:57: Lactic Acid Level 0.88 Objective-Cardiology Exam Last Set of Vital Signs Vital Signs 04/11/22 04/11/22 04/11/22 02:35 07:44 09:00 Temp 36.3 Pulse 116 Resp 18 B/P (MAP) 150/85 (106) Pulse Ox 100 O2 Delivery Vapotherm O2 Flow Rate 40.00 100.00 FiO2 60 I&O Intake and Output 04/11/22 00:00 Intake Total 350 ml Output Total 1075 ml Balance -725 ml Intake Oral 350 ml Output Urine Total 1075 ml General: Alert, Oriented X3, Cooperative HEENT: Atraumatic, PERRLA Neck: Supple, No JVD, No Thyromegaly Lungs: Normal Air Movement, Other (Bilateral rhonchi) Heart: Normal S1, Normal S2, No Murmurs, Other (Tachycardia) Abdomen: Normal Bowel Sounds, Soft, No Tenderness, No Hepatosplenomegaly, No Masses Extremities: No Clubbing, No Cyanosis, No Edema, No Tenderness/Swelling Skin: No Rashes, No Breakdown, No Significant Lesion Neuro: Normal Gait, Normal Speech, Strength at 5/5 X4 Ext, Normal Tone, Sensation Intact Psych/Mental Status: Mental Status NL, Mood NL Results Lab Laboratory Tests 04/11/22 06:06 A/P-Cardiology Admission Diagnosis Acute respiratory failure Non-ST elevation myocardial infarction Coronary artery disease Congestive heart failure Assessment/Plan Acute hypoxemic respiratory failure. Severe hypoxemia, hypercapnia Work-up showed DVT with high risk for pulmonary embolism Started on Lovenox. Non-ST elevation myocardial infarction cardiac catheterization carried out showed heavily calcified coronary system with eccentric calcified plaque at the ostial LAD with 70% stenosis, proximal and mid LAD with 70 to 90% stenosis, total occlusion of the right PDA with collateral filling from the left system, calcified right coronary artery and circumflex artery with moderate disease. 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 Incidental finding total occlusion of the right SFA Continue to maximize medical therapy at this point. Patient will be referred for evaluation for bypass surgery versus high risk intervention Congestive heart failure, severe left ventricular hypertrophy with normal systolic function Acute on chronic left ventricular diastolic dysfunction, normal systolic function. 2D echo done on April 10, 2022 with severe left ventricular hypertrophy and normal systolic function, ejection fraction 60%, calcified mitral and aortic valve. Severe pulmonary hypertension with PA pressure 65 to 70 mmHg Hypertension, continue to monitor blood pressure Lipid profile done on April 11, 2022 total cholesterol 110, LDL 50. I am adding Lipitor 20 mg due to the extensive coronary and peripheral arterial disease with a heavy atherosclerotic disease. Diabetes mellitus, followed and managed by primary care physician History of tobaccoism in the remote past MIKE SHELTON MD Apr 11, 2022 09:49
[2022-04-11] MEDS ORDERED: HOLD METFORMIN - RECEIVED CONTRAST 20 ML VIAL IV SCH (10:00)
[2022-04-11] MEDS ORDERED: NS 100 ML (IVPB) BAG IV ONE (10:00)
[2022-04-11] MEDS ORDERED: IOHEXOL 350 MG/ML 100 ML (OMNIPAQUE 350) VIAL IV ONE (10:00)
[2022-04-11] MEDS ORDERED: SCOPOLAMINE 1.5 MG (TRANSDERM-SCOP) PATCH TD ONE (10:00)
[2022-04-11] MEDS: PANTOPRAZOLE 40 MG (PROTONIX) TAB PO SCH (10:17)
[2022-04-11] MEDS: cefTRIAXone 1 GM PRE-MIX 50 ML IV SCH (10:17)
[2022-04-11] MEDS: ASPIRIN E.C. 81 MG (ECOTRIN) TAB PO SCH (10:17)
[2022-04-11] MEDS: SENNOSIDES 8.6 MG (SENOKOT) TAB PO SCH ×2 (10:17→21:16)
[2022-04-11] MEDS: meTOprolol TARTRATE 25 MG (LOPRESSOR) TABLET PO SCH ×2 (10:17→21:16)
[2022-04-11] MEDS: DOCUSATE SODIUM 100 MG (COLACE) CAP PO SCH ×2 (10:17→21:16)
[2022-04-11] MEDS: ENOXAPARIN 80 MG/0.8 ML (LOVENOX) SYR SC SCH ×2 (10:17→21:17)
[2022-04-11 14:27] LABS: ABG BASE EXCESS 11.9 MMOL/L (-2.5-2.5); ABG OXYGEN SATURATION 94 % (94-100); ABG PO2 75 MMHG (79-93)
[2022-04-11 14:29] LABS: ABG PCO2 100 MMHG (35-45); ABG PH 7.22 (7.37-7.43); ABG TCO2 42.8 MMOL/L (21.0-31.0); ALLENS TEST YES-POS; INSPIRED O2 40 L; PATIENT TEMP 37; VENTILATOR NO
--- NOTE | 2022-04-11 15:02 | Diagnostic Imaging Report ---
PROCEDURE: CT angiography of the chest with contrast. TECHNIQUE: Multiple contiguous axial images were obtained through the chest after uneventful bolus administration of intravenous contrast. 3D reconstructed CTA MIP acquisitions were also performed. Auto Exposure Controls were utilized during the CT exam to meet ALARA standards for radiation dose reduction. INDICATION: Shortness of breath. Concern for PE. COMPARISON: Chest radiograph performed earlier this same date. FINDINGS: This helical CT pulmonary angiogram is diagnostic to the subsegmental level branches of the pulmonary artery and demonstrates no pulmonary emboli. The heart is prominent. There is no pericardial effusion. There is calcified aortic and coronary atherosclerotic plaque. There is no axillary, mediastinal, or hilar adenopathy. Small bilateral pleural effusions are seen with bibasilar consolidative opacities. No discrete mass. Scattered groundglass opacities are seen in the lungs. No pneumothorax. Osseous structures appear normal. Limited views of the upper abdomen are unremarkable. IMPRESSION: 1. No acute pulmonary embolus. 2. Cardiomegaly with scattered groundglass opacities throughout the lungs suggestive of edema. Bilateral pleural effusions are also present with bibasilar atelectasis. Dictated by: Dictated on workstation # [id number]
[2022-04-11] MEDS ORDERED: FUROSEMIDE 40 MG/4 ML INJ (LASIX) IVP ONE (15:45)
[2022-04-11] MEDS: PROMETHAZINE INJ 25 MG/ML (PHENERGAN) AMP IVP PRN ×2 (16:08→23:10)
[2022-04-11] MEDS: DexMEDEtomidine 250 ML DRIP 250 ML IV SCH (17:57)
[2022-04-11 19:03] VITALS: BP 117/57
--- NOTE | 2022-04-11 20:38 | Progress Note - Hospitalist ---
Subjective HPI/CC On Admission Date Seen by Provider: Apr 11, 2022 Time Seen by Provider: 10:00 Irvin Lopez is a 76 year old female with PMH HTN, HLD, T2DM, TIA, who presented with shortness of breath. She has been at a [facility] in [place], [place]. She went to the ER at [facility]. She denies chest pain and palpitations. She denies cough. She denies fevers and chills. She has not noticed leg swelling. She denies abdominal pain, nausea, vomiting, and diarrhea. Subjective/Events-last exam She is laying in bed. She denies pain. She denies shortness of breath. She has had nausea. Focused Exam Lactate Level 04/09/22 23:57: Lactic Acid Level 0.88 Objective Exam Vital Signs Vital Signs Date Time Temp Pulse Resp B/P (MAP) Pulse Ox O2 Delivery O2 Flow Rate FiO2 04/11/22 19:50 94 NIV Bilevel 50 04/11/22 19:03 100 19 50.00 04/11/22 18:00 124/68 (86) 04/11/22 11:50 36.3 Capillary Refill : Less Than 3 Seconds General Appearance: No Apparent Distress, Obese Respiratory: Lungs Clear, No Respiratory Distress, Other (wearing Vapotherm) Cardiovascular: No Murmur, Tachycardia Gastrointestinal: Normal Bowel Sounds, Non Tender, Soft Extremity: Normal Inspection, Pedal Edema Neurologic/Psychiatric: Alert, Depressed Affect Skin: Normal Color, Warm/Dry Results/Procedures Lab Laboratory Tests 04/11/22 06:06 Patient resulted labs reviewed. Imaging: Reviewed Imaging Report Assessment/Plan Assessment and Plan Assess & Plan/Chief Complaint Acute respiratory failure with hypoxia and hypercapnia Significant oxygen requirement ABG with acute hypercapnia BiPAP as needed TeleICU following CTA chest with no PE, groundglass opacities, pleural effusions Stop fluids Lasix given Acute DVT Venous doppler with acute lower extremity DVT Therapeutic Lovenox NSTEMI Multivessel CAD Troponin significantly elevated Cardiology consulted Left heart cath with multi-vessel disease Will discuss possible CABG evaluation UTI Urine culture pending Rocephin HTN HLD T2DM TIA Resume home meds once med rec completed Critical Care Critically Ill Patient Diagnosis/Problems Diagnosis/Problems (1) Acute respiratory failure with hypoxia and hypercapnia Status: Acute (2) DVT (deep venous thrombosis) Status: Acute Qualifiers: DVT location: lower extremity (3) NSTEMI (non-ST elevation myocardial infarction) Status: Acute (4) Multiple vessel coronary artery disease Status: Acute (5) UTI (urinary tract infection) Status: Acute (6) Obesity Status: Chronic (7) HTN (hypertension) Status: Chronic (8) HLD (hyperlipidemia) Status: Chronic (9) T2DM (type 2 diabetes mellitus) Status: Chronic ALYSHA PRICE MD Apr 11, 2022 20:38
[2022-04-11 22:24] VITALS: BP 112/77
[2022-04-12] MEDS: inSUlin ASPART (NovoLOG) 1 UNIT/0.01 ML (CHARGE PER UNIT) SC SCH ×4 (00:12→18:37)
[2022-04-12 02:51] VITALS: BP 111/66
[2022-04-12] MEDS: RT-ALBUTEROL/IPRATROPIUM 3 ML (DUONEB) VIAL INH SCH ×6 (02:51→20:56)
[2022-04-12 05:45] LABS: BASOPHILS % (AUTO) 0 % (0-10); EOSINOPHILS % (AUTO) 0 % (0-10); HEMATOCRIT 28 % (35-52); HEMOGLOBIN 8.7 g/dL (11.5-16.0); LYMPHOCYTES # (AUTO) 0.3 10^3/uL (1.0-4.0); LYMPHOCYTES % (AUTO) 2 % (12-44); MEAN CORPUSCULAR HEMOGLOBIN 27 pg (25-34); MEAN CORPUSCULAR HGB CONC 31 g/dL (32-36); MEAN CORPUSCULAR VOLUME 87 fL (80-99); MEAN PLATELET VOLUME 10.3 fL (9.0-12.2); MONOCYTES % (AUTO) 5 % (0-12); NEUTROPHILS # (AUTO) 17.7 10^3/uL (1.8-7.8); NEUTROPHILS % (AUTO) 93 % (42-75); PLATELET COUNT 228 10^3/uL (130-400); WHITE BLOOD COUNT 19.2 10^3/uL (4.3-11.0)
[2022-04-12 06:08] LABS: POTASSIUM 3.1 MMOL/L (3.6-5.0)
[2022-04-12 06:09] LABS: CALCIUM 8.7 MG/DL (8.5-10.1)
[2022-04-12] MEDS: KCL 20 MEQ TAB (K-DUR) PO SCH (06:10)
[2022-04-12] MEDS: POTASSIUM CL 10MEQ/50ML IVPB 50 ML IV SCH ×5 (06:10→11:53)
[2022-04-12 06:13] LABS: CREATININE SERUM 0.72 MG/DL (0.60-1.30)
[2022-04-12 06:15] LABS: MAGNESIUM 1.8 MG/DL (1.6-2.4)
[2022-04-12] MEDS: MAGNESIUM 1 GM/100 ML IVPB 100 ML IV SCH (06:45)
[2022-04-12 06:59] VITALS: BP 96/67
[2022-04-12] MEDS ORDERED: NS 500 ML IV BAG IV ONE (07:00)
[2022-04-12] MEDS: ENOXAPARIN 80 MG/0.8 ML (LOVENOX) SYR SC SCH ×2 (08:21→21:16)
[2022-04-12] MEDS: FUROSEMIDE 40 MG/4 ML INJ (LASIX) IVP SCH ×2 (08:21→18:35)
[2022-04-12] MEDS: cefTRIAXone 1 GM PRE-MIX 50 ML IV SCH (08:22)
[2022-04-12] MEDS: SENNOSIDES 8.6 MG (SENOKOT) TAB PO SCH ×2 (08:26→20:18)
[2022-04-12] MEDS: meTOprolol TARTRATE 25 MG (LOPRESSOR) TABLET PO SCH ×2 (08:26→20:17)
[2022-04-12] MEDS: ASPIRIN E.C. 81 MG (ECOTRIN) TAB PO SCH (08:26)
[2022-04-12] MEDS: DOCUSATE SODIUM 100 MG (COLACE) CAP PO SCH ×2 (08:26→20:17)
[2022-04-12] MEDS: PANTOPRAZOLE 40 MG (PROTONIX) TAB PO SCH (08:26)
--- NOTE | 2022-04-12 08:52 | Cardiology Progress Note ---
Subjective Date Seen by Provider: Apr 12, 2022 Time Seen by Provider: 08:50 Subjective/Events-last exam Patient was seen at bedside, lethargic, on BiPAP Review of Systems General: No Chills, No Night Sweats; Fatigue, Malaise; No Appetite; Other (Unable to provide review of system) Pulmonary: Dyspnea Cardiovascular: No: Chest Pain, Palpitations, Orthopnea, Paroxysmal Noc. Dyspnea, Edema, Lt Headedness, Other Focused Exam Lactate Level 04/09/22 23:57: Lactic Acid Level 0.88 Objective-Cardiology Exam Last Set of Vital Signs Vital Signs 04/12/22 04/12/22 04/12/22 02:00 07:30 08:00 Temp 36.2 Pulse 87 Resp 15 B/P (MAP) 92/56 (68) Pulse Ox 94 O2 Delivery NIV Bilevel O2 Flow Rate 50.00 FiO2 50 I&O Intake and Output 04/12/22 00:00 Intake Total 1480 ml Output Total 1550 ml Balance -70 ml Intake Oral 730 ml IV Total 750 ml Output Urine Total 1550 ml General: Cooperative, Moderate Distress HEENT: Atraumatic, PERRLA Neck: Supple, No JVD, No Thyromegaly Lungs: Normal Air Movement, Other (Bilateral rhonchi) Heart: Normal S1, Normal S2, No Murmurs, Other (Tachycardia) Abdomen: Normal Bowel Sounds, Soft, No Tenderness, No Hepatosplenomegaly, No Masses Extremities: No Clubbing, No Cyanosis, No Edema, No Tenderness/Swelling Skin: No Rashes, No Breakdown, No Significant Lesion Neuro: Normal Gait, Normal Speech, Strength at 5/5 X4 Ext, Normal Tone, Sensation Intact Psych/Mental Status: Mental Status NL, Mood NL Results Lab Laboratory Tests 04/12/22 05:35 A/P-Cardiology Admission Diagnosis Acute respiratory failure Non-ST elevation myocardial infarction Coronary artery disease Congestive heart failure Assessment/Plan Acute hypoxemic respiratory failure. Severe hypoxemia, hypercapnia Work-up showed DVT with high risk for pulmonary embolism Currently retaining CO2, patient maintained on BiPAP Patient and family requested DNR/DNI, overall poor prognosis Non-ST elevation myocardial infarction cardiac catheterization carried out showed heavily calcified coronary system with eccentric calcified plaque at the ostial LAD with 70% stenosis, proximal and mid LAD with 70 to 90% stenosis, total occlusion of the right PDA with collateral filling from the left system, calcified right coronary artery and circumflex artery with moderate disease. 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 Incidental finding total occlusion of the right SFA Continue to maximize medical therapy at this point. Patient will be referred for evaluation for bypass surgery versus high risk intervention if she become stable from her pulmonary status Congestive heart failure, severe left ventricular hypertrophy with normal systolic function Acute on chronic left ventricular diastolic dysfunction, normal systolic function. 2D echo done on April 10, 2022 with severe left ventricular hypertrophy and normal systolic function, ejection fraction 60%, calcified mitral and aortic valve. Severe pulmonary hypertension with PA pressure 65 to 70 mmHg Hypertension, continue to monitor blood pressure Lipid profile done on April 11, 2022 total cholesterol 110, LDL 50. I am adding Lipitor 20 mg due to the extensive coronary and peripheral arterial disease with a heavy atherosclerotic disease. Diabetes mellitus, followed and managed by primary care physician History of tobaccoism in the remote past MIKE SHELTON MD Apr 12, 2022 08:52
[2022-04-12] MEDS ORDERED: [UNRECOGNIZED DRUG - CODE] TP (09:12)
[2022-04-12] MEDS ORDERED: [UNRECOGNIZED DRUG - CODE] MM (09:12)
[2022-04-12] MEDS ORDERED: LORA10TA7 PO (09:12)
[2022-04-12] MEDS ORDERED: METO100T12 PO (09:12)
[2022-04-12] MEDS ORDERED: DOCU100C37 PO (09:12)
[2022-04-12] MEDS ORDERED: ATOR10TA66 PO (09:12)
[2022-04-12] MEDS ORDERED: LACT1CAP76 PO (09:12)
[2022-04-12] MEDS ORDERED: SOLI10TA7 PO (09:12)
[2022-04-12] MEDS ORDERED: BISA5TAB8 PO (09:12)
[2022-04-12] MEDS ORDERED: MAGN400O7 PO (09:12)
[2022-04-12] MEDS ORDERED: POLY17PO6 PO (09:12)
[2022-04-12] MEDS ORDERED: FURO20TA4 PO (09:12)
[2022-04-12] MEDS ORDERED: ASPI-999 PO (09:12)
[2022-04-12] MEDS ORDERED: GLYC-12 RC (09:12)
[2022-04-12] MEDS ORDERED: CALC500T64 PO (09:12)
[2022-04-12] MEDS ORDERED: POTA10CA43 PO (09:12)
[2022-04-12] MEDS ORDERED: METF-397 PO (09:12)
[2022-04-12] MEDS ORDERED: FLUT9.9S NS (09:12)
[2022-04-12] MEDS ORDERED: NF-NACL1GT PO (09:12)
[2022-04-12] MEDS ORDERED: AMLO-251 PO (09:12)
[2022-04-12] MEDS ORDERED: ACET-2267 PO (09:12)
[2022-04-12] MEDS ORDERED: IPRA3AMP31 IH (09:12)
[2022-04-12] MEDS ORDERED: CEPH500C PO (09:39)
--- NOTE | 2022-04-12 10:15 | Progress Note - Hospitalist ---
Subjective HPI/CC On Admission Date Seen by Provider: Apr 12, 2022 Irvin Lopez is a 76 year old female with PMH HTN, HLD, T2DM, TIA, who presented with shortness of breath. She has been at a [facility] in [place], [place]. She went to the ER at [facility]. She denies chest pain and palpitations. She denies cough. She denies fevers and chills. She has not noticed leg swelling. She denies abdominal pain, nausea, vomiting, and diarrhea. Subjective/Events-last exam Pt is laying in bed on BiPAP. Openes eyes but did not speak. Quickly back to sleep. No family at bedside. Focused Exam Lactate Level 04/09/22 23:57: Lactic Acid Level 0.88 Objective Exam Vital Signs Vital Signs Date Time Temp Pulse Resp B/P (MAP) Pulse Ox O2 Delivery O2 Flow Rate FiO2 04/12/22 09:05 NIV Bilevel 75.00 04/12/22 08:00 36.5 04/12/22 08:00 87 15 92/56 (68) 94 04/12/22 07:30 50 Capillary Refill : Less Than 3 Seconds General Appearance: Chronically ill, Mild Distress, Obese Respiratory: Decreased Breath Sounds; No Wheezing Cardiovascular: Regular Rate, Rhythm, No Murmur Gastrointestinal: Normal Bowel Sounds, Non Tender, Soft Extremity: Pedal Edema Neurologic/Psychiatric: Alert (drowsy but opened eyes when spoken to) Results/Procedures Lab Laboratory Tests 04/12/22 05:35 Patient resulted labs reviewed. Imaging: Reviewed Imaging Report Assessment/Plan Assessment and Plan Assess & Plan/Chief Complaint Acute respiratory failure with hypoxia and hypercapnia Significant oxygen requirement ABG with acute hypercapnia BiPAP as needed- precedex to tolerate TeleICU following CTA chest with no PE, groundglass opacities, pleural effusions Continue Lasix Acute DVT Venous doppler with acute lower extremity DVT Therapeutic Lovenox NSTEMI Multivessel CAD Troponin significantly elevated Cardiology consulted Left heart cath with multi-vessel disease Will discuss possible CABG evaluation UTI Urine culture with entrococcus and pseudomonas Change to Levaquin per sensitivities HTN HLD T2DM TIA Resume home meds once med rec completed Critical Care Critically Ill Patient LILLI JANE MD Apr 12, 2022 10:15
[2022-04-12] MEDS: DexMEDEtomidine 250 ML DRIP 250 ML IV SCH (13:47)
--- NOTE | 2022-04-12 16:12 | Tele-ICU Consult ---
History of Present Illness History of Present Illness Date Seen by Provider: Apr 12, 2022 Time Seen by Provider: 16:12 Date of Admission . (Tele-ICU Physician , Progress Note ) Available chart/ vitals / labs / Images reviewed Video assessment done using teleICU camera, rest of exam as per RN Discussed with RN Events overnight : Afebrile hemodynamically stable Respiratory - I/O = Drips: Pressors- no Consultants: Hospital course: A/P Acute hypoxemic respiratory failure (hypoxemia, hypercapnia - on AVAPS rr 14 ( sp 20 ) 75% tv 425 MV 8L this am , now MV 23L since RR over 30 - more hypoxix amd retaining more CO2 - will increase settings and do stat cxr DVT RLE - on lovenox full dose NSTEMI - as per cards CHF -EF 60 % -lasix IV bid - minimal UO DM II -ISS delirium - precedex DNI/DNR Lines : periph , (Central Line Necessity Reviewed) Marroquin: + OG: Nutrition: Analgesia: Anxiety/ delirium - precedex VTE Prophylaxis lovenox 80 bid Stress Ulcer Prophylaxis: ppi Plans in collaboration with bedside consultants and IM MDs. Discussed with RN to reach out if any questions or concerns A total of 32 minutes of critical care time was devoted to this patient today, required to treat and/or prevent further deterioration of critical care condition ( as above ) . I am remotely monitoring this patient from another state. I am unable to do the bedside exam, and history/physical and pertinent information is taken from other notes in the computer and bedside staff. I cannot take responsibility for the accuracy of this information. . Reason for Visit: Shortness of breath Allergies and Home Medications Allergies Coded Allergies: No Allergy Information Available (Unverified , 04/09/22) Home Medications Acetaminophen 500 Mg Tablet, 1,000 MG PO TID PRN for PAIN-MILD (1-4), (Reported) Amlodipine Besylate 10 Mg Tablet, 10 MG PO DAILY, (Reported) Aspirin 81 Mg Tab.chew, 81 MG PO DAILY, (Reported) Atorvastatin Calcium 10 Mg Tablet, 10 MG PO HS, (Reported) Bisacodyl 5 Mg Tablet.dr, 5 MG PO DAILY, (Reported) Calcium Carbonate 500 Mg Calcium (1250 Mg) Tablet, 500 MG PO DAILY PRN for INDIGESTION, (Reported) Cephalexin 500 Mg Capsule, 500 MG PO DAILY, (Reported) UTI PROPHYLAXIS Docusate Sodium 100 Mg Capsule, 100 MG PO DAILY, (Reported) Fluticasone Propionate 50 Mcg/Actuation [facility].susp, 1 SPRAY NS DAILY, (Reported) Furosemide 20 Mg Tablet, 20 MG PO DAILY, (Reported) Glycerin Adult Supp.rect, 1 EACH RC DAILY PRN for CONSTIPATION, (Reported) Ipratropium/Albuterol Sulfate 0.5 Mg-3 Mg (2.5 Mg Base)/3 Ml Ampul.neb, 3 ML IH Q6H PRN for SHORTNESS OF BREATH, (Reported) Lactobacillus Acidophilus/Pect 75 Million Cell-100 Mg Capsule, 1 EACH PO BID, (R eported) Lanolin 50 % Cream..g., 1 APPLIC TP DAILY PRN for SKIN IRRITATION/BREAKDOWN, (Reported) Loratadine 10 Mg Tablet, 10 MG PO DAILY, (Reported) Magnesium Hydroxide 400 Mg/5 Ml Oral.susp, 15 ML PO DAILY PRN for CONSTIPATION- 7TH LINE, (Reported) Menthol 5.8 Mg Lozenge, 5.8 MG MM UD PRN for COUGH, (Reported) Metformin HCl 500 Mg Tablet, 500 MG PO BID, (Reported) Metoprolol Tartrate 100 Mg Tablet, 100 MG PO BID, (Reported) Polyethylene Glycol 3350 17 Gram Powd.pack, 17 GM PO DAILY PRN for CONSTIPATION- 2ND LINE, (Reported) Potassium Chloride 10 Meq Capsule.er, 10 MEQ PO DAILY, (Reported) Sodium Chloride 1 Gram Tab, 1 GM PO TIDWM, (Reported) Solifenacin Succinate 10 Mg Tablet, 10 MG PO DAILY, (Reported) Past Medical/Social/Family Hx Patient Social History Employed/Student: retired Tobacco Use?: No Tobacco type used: Cigarettes Smoking Status: Former Smoker Substance use?: No Alcohol Use?: No Immunizations Up To Date Influenza Vaccine Up-to-Date: No; Not Current Tetanus Booster (TDap): Unknown Hepatitis A: No Hepatitis B: No TB Skin Test: None Current Status status: No Advance Directives: No Advance Directive Location: Copy placed in chart Communicates: Verbally Primary Language: Citizen Of [place] Preferred Spoken Language: Citizen Of [place] Is interpretation needed?: No Sensory deficits: Vision impairment Implanted or Applied Medical D: None Review of Systems Constitutional: see HPI Focused Exam Lactate Level 04/09/22 23:57: Lactic Acid Level 0.88 Height, Weight, BMI Height: '" Weight: lbs. oz. kg; 38.97 BMI Method: Exam Exam Patient acknowledged, consented, and participated in this virtual visit which was conducted using real time audio/video Vital Signs Date Time Temp Pulse Resp B/P (MAP) Pulse Ox O2 Delivery O2 Flow Rate FiO2 04/12/22 14:00 96 24 86/68 (74) 90 NIV Bilevel 100.00 04/12/22 13:47 96 118/64 04/12/22 13:25 99 04/12/22 13:00 98 20 116/68 (84) 90 NIV Bilevel 100.00 04/12/22 12:00 35.8 04/12/22 12:00 NIV Bilevel 100 04/12/22 12:00 98 20 116/68 (84) 88 NIV Bilevel 100.00 04/12/22 11:00 93 21 116/68 (84) 92 NIV Bilevel 80.00 04/12/22 10:00 85 17 105/61 (76) 91 NIV Bilevel 75.00 04/12/22 09:05 NIV Bilevel 75.00 04/12/22 09:00 84 13 122/67 (85) 89 NIV Bilevel 50.00 04/12/22 08:00 36.5 04/12/22 08:00 87 15 92/56 (68) 94 NIV Bilevel 50.00 04/12/22 07:30 NIV Bilevel 50 04/12/22 07:00 92 04/12/22 07:00 91 18 96/67 (77) 93 NIV Bilevel 50.00 04/12/22 06:59 91 16 94 50.00 04/12/22 06:00 92 18 110/60 (76) 95 NIV Bilevel 50.00 04/12/22 05:00 96 18 109/68 (82) 89 NIV Bilevel 50.00 04/12/22 04:36 96 17 100/63 (75) 89 NIV Bilevel 50.00 04/12/22 04:00 94 NIV Bilevel 50 04/12/22 03:00 94 16 108/70 (81) 93 NIV Bilevel 50.00 04/12/22 02:51 89 28 96 50.00 04/12/22 02:00 36.2 04/12/22 02:00 88 13 111/66 (70) 96 NIV Bilevel 50.00 04/12/22 01:00 90 26 116/71 (87) 98 NIV Bilevel 50.00 04/12/22 01:00 90 04/12/22 00:13 94 NIV Bilevel 50 04/12/22 00:00 92 20 108/69 (86) 97 NIV Bilevel 50.00 04/11/22 23:00 93 11 115/68 (81) 97 NIV Bilevel 50.00 04/11/22 22:24 89 14 100 50.00 04/11/22 22:00 93 11 112/77 (87) 99 NIV Bilevel 50.00 04/11/22 22:00 36.4 04/11/22 21:00 97 13 118/61 (77) 100 NIV Bilevel 50.00 04/11/22 20:00 97 18 112/92 (98) 100 NIV Bilevel 50.00 04/11/22 19:50 94 NIV Bilevel 50 04/11/22 19:03 100 19 100 50.00 04/11/22 19:00 98 16 117/57 (85) 100 NIV Bilevel 50.00 04/11/22 19:00 98 04/11/22 18:00 102 19 124/68 (86) 96 NIV Bilevel 50.00 04/11/22 17:00 108 24 138/66 (90) 95 NIV Bilevel 50.00 04/11/22 16:49 NIV Bilevel 50.00 I & O 04/12/22 07:00 Intake Total 1180 ml Output Total 1340 ml Balance -160 ml Height & Weight Height: '" Weight: lbs. oz. kg; 38.97 BMI Method: General Appearance: Chronically ill, Mild Distress, Obese HEENT: PERRL/EOMI, Pharynx Normal Neck: Normal Inspection, Supple Respiratory: Decreased Breath Sounds; No Wheezing Cardiovascular: Regular Rate, Rhythm, No Murmur Capillary Refill: Less Than 3 Seconds Extremity: Pedal Edema Neurologic/Psychiatric: Alert (drowsy but opened eyes when spoken to) Skin: Normal Color, Warm/Dry Lymphatic: No Adenopathy Results Lab Laboratory Tests 04/11/22 06:06 04/12/22 05:35 Assessment/Plan Assessment/Plan 1 HARESH HUSSEIN MD Apr 12, 2022 16:12
--- NOTE | 2022-04-12 16:30 | Diagnostic Imaging Report ---
EXAMINATION: Chest 1 view HISTORY: Hypoxia. COMPARISON: 04/11/2022. FINDINGS: Heart size and pulmonary vasculature are stable. Stable low lung volumes with patchy opacities in the mid and lower lungs. No pleural effusion or pneumothorax. The osseous structures are intact. IMPRESSION: 1. Stable low lung volumes and bibasilar opacities compared to 04/11/2022. Dictated by: Dictated on workstation # [id number]
[2022-04-12 17:06] LABS: POTASSIUM 4.9 MMOL/L (3.6-5.0)
[2022-04-12 17:08] LABS: CALCIUM 8.7 MG/DL (8.5-10.1)
[2022-04-12 17:12] LABS: CREATININE SERUM 0.99 MG/DL (0.60-1.30)
[2022-04-12] MEDS ORDERED: morphine INJ 4 MG/ML 1 ML (VIAL/SYRINGE) ONE (17:27)
[2022-04-12] MEDS ORDERED: morphine INJ 4 MG/ML 1 ML (VIAL/SYRINGE) IVP PRN (17:30)
[2022-04-12] MEDS ORDERED: KETOROLAC 30 MG/ML VIAL IVP NR (18:15)
[2022-04-12] MEDS: methylPREDNISolone 40 MG/ML (Solu-MEDROL) VIAL IV SCH (18:36)
[2022-04-12] MEDS ORDERED: NOREPINEPHRINE 8 MG/250 ML 250 ML IV ONE (18:49)
[2022-04-12] MEDS: NOREPINEPHRINE 8 MG/250 ML 250 ML IV SCH (18:54)
[2022-04-13] MEDS: inSUlin ASPART (NovoLOG) 1 UNIT/0.01 ML (CHARGE PER UNIT) SC SCH ×4 (00:07→19:13)
[2022-04-13] MEDS: methylPREDNISolone 40 MG/ML (Solu-MEDROL) VIAL IV SCH ×4 (00:07→19:14)
[2022-04-13] MEDS: DexMEDEtomidine 250 ML DRIP 250 ML IV SCH ×2 (02:14→14:00)
[2022-04-13] MEDS: RT-ALBUTEROL/IPRATROPIUM 3 ML (DUONEB) VIAL INH SCH ×6 (02:19→21:59)
[2022-04-13 05:32] LABS: BASOPHILS # (AUTO) 0.1 10^3/uL (0.0-0.1); BASOPHILS % (AUTO) 0 % (0-10); EOSINOPHILS % (AUTO) 0 % (0-10); HEMATOCRIT 31 % (35-52); HEMOGLOBIN 9.4 g/dL (11.5-16.0); LYMPHOCYTES # (AUTO) 0.3 10^3/uL (1.0-4.0); LYMPHOCYTES % (AUTO) 1 % (12-44); MEAN CORPUSCULAR HEMOGLOBIN 26 pg (25-34); MEAN CORPUSCULAR HGB CONC 30 g/dL (32-36); MEAN CORPUSCULAR VOLUME 86 fL (80-99); MEAN PLATELET VOLUME 10.4 fL (9.0-12.2); MONOCYTES # (AUTO) 0.8 10^3/uL (0.0-1.0); MONOCYTES % (AUTO) 3 % (0-12); NEUTROPHILS # (AUTO) 25.6 10^3/uL (1.8-7.8); NEUTROPHILS % (AUTO) 95 % (42-75); PLATELET COUNT 340 10^3/uL (130-400)
[2022-04-13 05:43] LABS: POTASSIUM 4.7 MMOL/L (3.6-5.0)
[2022-04-13 05:45] LABS: CALCIUM 8.9 MG/DL (8.5-10.1)
[2022-04-13 05:49] LABS: CREATININE SERUM 1.25 MG/DL (0.60-1.30)
[2022-04-13 05:51] LABS: MAGNESIUM 1.8 MG/DL (1.6-2.4)
[2022-04-13] MEDS: MAGNESIUM 1 GM/100 ML IVPB 100 ML IV SCH (06:26)
[2022-04-13] MEDS: KCL 20 MEQ TAB (K-DUR) PO SCH (06:26)
[2022-04-13] MEDS: POTASSIUM CL 10MEQ/50ML IVPB 50 ML IV SCH (06:26)
[2022-04-13] MEDS: FUROSEMIDE 40 MG/4 ML INJ (LASIX) IVP SCH ×2 (06:33→19:13)
[2022-04-13] MEDS: DOCUSATE SODIUM 100 MG (COLACE) CAP PO SCH ×2 (07:38→21:00)
[2022-04-13] MEDS: SENNOSIDES 8.6 MG (SENOKOT) TAB PO SCH ×2 (07:38→21:00)
--- NOTE | 2022-04-13 08:56 | Cardiology Progress Note ---
Subjective Date Seen by Provider: Apr 13, 2022 Time Seen by Provider: 08:55 Subjective/Events-last exam Patient was seen at bedside, lethargic, on BiPAP Review of Systems General: Other (Unable to provide review of system) Objective-Cardiology Exam Last Set of Vital Signs Vital Signs 04/13/22 04/13/22 04/13/22 04/13/22 04/13/22 04:00 06:00 06:44 07:24 08:00 Temp 35.8 Pulse 110 Resp 23 B/P (MAP) 129/82 (98) Pulse Ox 96 O2 Delivery NIV Bilevel O2 Flow Rate 100.00 FiO2 100 I&O Intake and Output 04/13/22 00:00 Intake Total 350 ml Output Total 170 ml Balance 180 ml Intake Oral 0 ml IV Total 350 ml Output Urine Total 170 ml General: Cooperative, Moderate Distress HEENT: Atraumatic, PERRLA Neck: Supple, No JVD, No Thyromegaly Lungs: Normal Air Movement, Other (Bilateral rhonchi) Heart: Normal S1, Normal S2, No Murmurs, Other (Tachycardia) Abdomen: Normal Bowel Sounds, Soft, No Tenderness, No Hepatosplenomegaly, No Masses Extremities: No Clubbing, No Cyanosis, No Edema, No Tenderness/Swelling Skin: No Rashes, No Breakdown, No Significant Lesion Neuro: Normal Gait, Normal Speech, Strength at 5/5 X4 Ext, Normal Tone, Sensation Intact Psych/Mental Status: Mental Status NL, Mood NL Results Lab Laboratory Tests 04/12/22 16:30 04/13/22 05:15 A/P-Cardiology Admission Diagnosis Acute respiratory failure Non-ST elevation myocardial infarction Coronary artery disease Congestive heart failure Assessment/Plan Acute hypoxemic respiratory failure. Severe hypoxemia, hypercapnia Work-up showed DVT with high risk for pulmonary embolism Currently retaining CO2, patient maintained on BiPAP Patient and family requested DNR/DNI, overall poor prognosis Non-ST elevation myocardial infarction cardiac catheterization carried out showed heavily calcified coronary system with eccentric calcified plaque at the ostial LAD with 70% stenosis, proximal and mid LAD with 70 to 90% stenosis, total occlusion of the right PDA with collateral filling from the left system, calcified right coronary artery and circumflex artery with moderate disease. 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 Incidental finding total occlusion of the right SFA Continue to maximize medical therapy at this point. Patient will be referred for evaluation for bypass surgery versus high risk intervention if she become stable from her pulmonary status Congestive heart failure, severe left ventricular hypertrophy with normal systolic function Acute on chronic left ventricular diastolic dysfunction, normal systolic function. 2D echo done on April 10, 2022 with severe left ventricular hypertrophy and normal systolic function, ejection fraction 60%, calcified mitral and aortic valve. Severe pulmonary hypertension with PA pressure 65 to 70 mmHg Hypertension, continue to monitor blood pressure Lipid profile done on April 11, 2022 total cholesterol 110, LDL 50. I am adding Lipitor 20 mg due to the extensive coronary and peripheral arterial disease with a heavy atherosclerotic disease. Diabetes mellitus, followed and managed by primary care physician History of tobaccoism in the remote past MIKE SHELTON MD Apr 13, 2022 08:56
[2022-04-13 10:16] VITALS: BP 148/61
--- NOTE | 2022-04-13 11:32 | Progress Note - Hospitalist ---
Subjective HPI/CC On Admission Date Seen by Provider: Apr 13, 2022 Irvin Lopez is a 76 year old female with PMH HTN, HLD, T2DM, TIA, who presented with shortness of breath. She has been at a fci in [place], [place]. She went to the ER at [facility]. She denies chest pain and palpitations. She denies cough. She denies fevers and chills. She has not noticed leg swelling. She denies abdominal pain, nausea, vomiting, and diarrhea. Subjective/Events-last exam Pt laying in bed. On BiPAP. Attempting to say something but incomprehensible. RN reports does not tolerate any time off BiPAP without sevre desats. Daughter en route. Objective Exam Vital Signs Vital Signs Date Time Temp Pulse Resp B/P (MAP) Pulse Ox O2 Delivery O2 Flow Rate FiO2 04/13/22 11:00 118 23 171/86 (114) 97 NIV Bilevel 100.00 04/13/22 08:00 35.8 04/13/22 08:00 100 Capillary Refill : Less Than 3 Seconds General Appearance: Chronically ill, Obese Respiratory: Lungs Clear, No Respiratory Distress Cardiovascular: Regular Rate, Rhythm, No Murmur Neurologic/Psychiatric: Alert, Disoriented Results/Procedures Lab Laboratory Tests 04/12/22 16:30 04/13/22 05:15 Patient resulted labs reviewed. Imaging: Reviewed Imaging Report Assessment/Plan Assessment and Plan Assess & Plan/Chief Complaint Acute respiratory failure with hypoxia and hypercapnia Cardiogenic shock Significant oxygen requirement ABG with acute hypercapnia BiPAP as needed- precedex to tolerate Increasing oxygen requirement yesterday TeleICU following CTA chest with no PE, groundglass opacities, pleural effusions Continue Lasix Now on levophed as well Discussed poor prognosis with daughter yesterday, daughter is DPOA and confirms patient is a DNR. Daughter en route. Acute DVT Venous doppler with acute lower extremity DVT Therapeutic Lovenox NSTEMI Multivessel CAD Troponin significantly elevated Cardiology consulted Left heart cath with multi-vessel disease UTI Urine culture with entrococcus and pseudomonas Continue Levaquin per sensitivities HTN HLD T2DM TIA Resume home meds as appropriate Critical Care Critically Ill Patient LILLI JANE MD Apr 13, 2022 11:32
--- NOTE | 2022-04-13 12:05 | Tele-ICU Progress Note ---
Subjective Date Seen by a Provider: Apr 13, 2022 Time Seen by a Provider: 12:05 Subjective/Events-last exam . (Tele-ICU Physician , Progress Note ) Available chart/ vitals / labs / Images reviewed Video assessment done using teleICU camera, rest of exam as per RN Discussed with RN Events overnight : Afebrile hemodynamically stable Respiratory - avaps 100% I/O = even Drips: Pressors- no Consultants: Hospital course: (04/09) 76yr old female admitted with respiratory failure, pneumonia and UTI. NSTEMI. (04/10) Venous dopplers (+) DVT RLE. 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 Not a candidate for surgery @ this time. medically manage. 04/12 - A/P Acute hypoxemic respiratory failure (hypoxemia, hypercapnia - on AVAPS rr 14 ( sp 20 ) 75% tv 425 MV 8L this am , now MV 23L since RR over 30 - more hypoxix and retaining more CO2 - settings increASED AND iv STEROID STARTED 04/12 - TODAY rR 25 , tv 480 mv 13 l STILL ON 100% DVT RLE - on lovenox full dose NSTEMI - as per cards CHF -EF 60 % -lasix IV bid - minimal UO , CR STABLE - PER CARDS DM II -ISS id - EMPIRIC ABX - LEVOFLOXACIN - dose as per pharmacy delirium - precedex 1.0 DNI/DNR - awaiting for mfami;ly - as per RN - anticipating comfort measures IF FAMILY DECIDES TO CPM - WILL NEED NG FOR FEEDING, ABG , CENTRAL LINE Lines : periph , (Central Line Necessity Reviewed) Marroquin: + OG: Nutrition: Analgesia: Anxiety/ delirium - precedex VTE Prophylaxis lovenox 80 bid Stress Ulcer Prophylaxis: ppi Plans in collaboration with bedside consultants and IM MDs. Discussed with RN to reach out if any questions or concerns A total of 32 minutes of critical care time was devoted to this patient today, required to treat and/or prevent further deterioration of critical care condition ( as above ) . I am remotely monitoring this patient from another state. I am unable to do the bedside exam, and history/physical and pertinent information is taken from other notes in the computer and bedside staff. I cannot take responsibility for the accuracy of this information. Sepsis Event Evaluation Height, Weight, BMI Height: '" Weight: lbs. oz. kg; 39.64 BMI Method: Exam Exam Patient acknowledged, consented, and participated in this virtual visit which was conducted using real time audio/video Vital Signs Date Time Temp Pulse Resp B/P (MAP) Pulse Ox O2 Delivery O2 Flow Rate FiO2 04/13/22 11:00 118 23 171/86 (114) 97 NIV Bilevel 100.00 04/13/22 10:16 112 20 98 100.00 04/13/22 10:00 112 16 132/69 (90) 98 NIV Bilevel 100.00 04/13/22 09:00 112 29 159/77 (104) 97 NIV Bilevel 100.00 04/13/22 08:00 110 32 137/77 (97) 97 NIV Bilevel 100.00 04/13/22 08:00 35.8 04/13/22 08:00 NIV Bilevel 100 04/13/22 07:24 110 04/13/22 07:00 110 22 91/44 (60) 97 NIV Bilevel 100.00 04/13/22 06:44 101 23 96 100.00 04/13/22 06:00 104 19 129/82 (98) 97 NIV Bilevel 100.00 04/13/22 05:00 106 20 139/85 (103) 97 NIV Bilevel 100.00 04/13/22 04:00 NIV Bilevel 100 04/13/22 04:00 106 22 123/73 (91) 97 NIV Bilevel 100.00 04/13/22 03:00 110 21 126/75 (93) 98 NIV Bilevel 100.00 04/13/22 02:19 104 21 97 100.00 04/13/22 02:00 104 20 125/82 (103) 97 NIV Bilevel 100.00 04/13/22 01:00 105 22 144/89 (102) 97 NIV Bilevel 100.00 04/13/22 01:00 105 04/13/22 00:00 NIV Bilevel 100 04/13/22 00:00 103 19 139/66 (96) 94 NIV Bilevel 100.00 04/12/22 23:00 106 21 134/84 (103) 94 NIV Bilevel 100.00 04/12/22 22:00 111 21 135/86 (102) 90 NIV Bilevel 100.00 04/12/22 21:00 107 23 129/83 (99) 88 NIV Bilevel 100.00 04/12/22 20:57 106 22 86 100.00 04/12/22 20:12 NIV Bilevel 100 04/12/22 20:00 35.7 04/12/22 20:00 111 20 114/77 (88) 80 NIV Bilevel 100.00 04/12/22 19:00 110 23 98/67 (82) 80 NIV Bilevel 100.00 04/12/22 19:00 110 04/12/22 18:54 96 82/38 04/12/22 18:09 92 28 74 100.00 04/12/22 18:00 94 45 56/49 (51) 71 NIV Bilevel 100.00 04/12/22 17:00 101 33 74/56 (62) 69 NIV Bilevel 100.00 04/12/22 16:00 35.0 04/12/22 16:00 NIV Bilevel 100 04/12/22 16:00 101 31 101/84 (90) 84 NIV Bilevel 100.00 04/12/22 15:00 88 20 94 100.00 04/12/22 15:00 95 25 107/65 (79) 89 NIV Bilevel 100.00 04/12/22 14:00 96 24 86/68 (74) 90 NIV Bilevel 100.00 04/12/22 13:47 96 118/64 04/12/22 13:25 99 04/12/22 13:00 98 20 116/68 (84) 90 NIV Bilevel 100.00 I & O 04/13/22 07:00 Intake Total 350 ml Output Total 125 ml Balance 225 ml Height & Weight Height: '" Weight: lbs. oz. kg; 39.64 BMI Method: General Appearance: Chronically ill, Obese HEENT: PERRL/EOMI, Pharynx Normal Neck: Normal Inspection, Supple Respiratory: Lungs Clear, No Respiratory Distress Cardiovascular: Regular Rate, Rhythm, No Murmur Capillary Refill: Less Than 3 Seconds Extremity: Pedal Edema Neurologic/Psychiatric: Alert, Disoriented Skin: Normal Color, Warm/Dry Lymphatic: No Adenopathy Results Lab Laboratory Tests 04/12/22 05:35 04/12/22 16:30 04/13/22 05:15 Assessment/Plan Assessment/Plan 1 HARESH HUSSEIN MD Apr 13, 2022 12:05
[2022-04-13] MEDS: ASPIRIN E.C. 81 MG (ECOTRIN) TAB PO SCH (13:56)
[2022-04-13] MEDS: meTOprolol TARTRATE 25 MG (LOPRESSOR) TABLET PO SCH ×2 (13:57→21:00)
[2022-04-13] MEDS: ENOXAPARIN 80 MG/0.8 ML (LOVENOX) SYR SC SCH (13:57)
[2022-04-13] MEDS: PANTOPRAZOLE 40 MG (PROTONIX) TAB PO SCH (13:57)
[2022-04-13] MEDS: NOREPINEPHRINE 8 MG/250 ML 250 ML IV SCH (13:58)
[2022-04-13 14:28] VITALS: BP 114/70
[2022-04-13 18:36] VITALS: BP 116/79
[2022-04-13 22:00] VITALS: BP 121/77
[2022-04-14] MEDS: methylPREDNISolone 40 MG/ML (Solu-MEDROL) VIAL IV SCH ×4 (01:30→17:05)
[2022-04-14] MEDS: DexMEDEtomidine 250 ML DRIP 250 ML IV SCH ×3 (01:32→17:05)
[2022-04-14] MEDS: ENOXAPARIN 80 MG/0.8 ML (LOVENOX) SYR SC SCH ×2 (01:50→21:31)
[2022-04-14] MEDS: RT-ALBUTEROL/IPRATROPIUM 3 ML (DUONEB) VIAL INH SCH ×6 (02:15→22:16)
[2022-04-14 02:18] VITALS: BP 128/82
[2022-04-14 05:49] LABS: CREATININE SERUM 1.46 MG/DL (0.60-1.30); MAGNESIUM 1.8 MG/DL (1.6-2.4); POTASSIUM 4.7 MMOL/L (3.6-5.0)
[2022-04-14] MEDS: FUROSEMIDE 40 MG/4 ML INJ (LASIX) IVP SCH (06:18)
[2022-04-14 06:24] VITALS: BP 134/81
[2022-04-14] MEDS: MAGNESIUM 1 GM/100 ML IVPB 100 ML IV SCH (06:48)
[2022-04-14] MEDS: POTASSIUM CL 10MEQ/50ML IVPB 50 ML IV SCH (06:48)
[2022-04-14] MEDS: KCL 20 MEQ TAB (K-DUR) PO SCH (06:49)
[2022-04-14] MEDS: inSUlin ASPART (NovoLOG) 1 UNIT/0.01 ML (CHARGE PER UNIT) SC SCH ×4 (06:49→18:27)
[2022-04-14] MEDS: NOREPINEPHRINE 8 MG/250 ML 250 ML IV SCH (06:50)
[2022-04-14 07:42] LABS: BASOPHILS % (AUTO) 0 % (0-10); EOSINOPHILS % (AUTO) 0 % (0-10); HEMATOCRIT 28 % (35-52); HEMOGLOBIN 8.5 g/dL (11.5-16.0); LYMPHOCYTES # (AUTO) 0.3 10^3/uL (1.0-4.0); LYMPHOCYTES % (AUTO) 2 % (12-44); MEAN CORPUSCULAR HEMOGLOBIN 27 pg (25-34); MEAN CORPUSCULAR HGB CONC 31 g/dL (32-36); MEAN CORPUSCULAR VOLUME 88 fL (80-99); MEAN PLATELET VOLUME 10.3 fL (9.0-12.2); MONOCYTES # (AUTO) 0.7 10^3/uL (0.0-1.0); MONOCYTES % (AUTO) 4 % (0-12); NEUTROPHILS # (AUTO) 15.4 10^3/uL (1.8-7.8); NEUTROPHILS % (AUTO) 94 % (42-75); PLATELET COUNT 291 10^3/uL (130-400); WHITE BLOOD COUNT 16.4 10^3/uL (4.3-11.0)
--- NOTE | 2022-04-14 09:04 | Cardiology Progress Note ---
Subjective Date Seen by Provider: Apr 14, 2022 Time Seen by Provider: 09:02 Subjective/Events-last exam Patient was seen at bedside, maintained on BiPAP, lethargic. Review of Systems General: Other (Unable to provide review of system) Objective-Cardiology Exam Last Set of Vital Signs Vital Signs 04/14/22 04/14/22 04/14/22 04/14/22 04/14/22 04:00 06:00 06:24 06:59 08:00 Temp 35.6 Pulse 107 Resp 27 B/P (MAP) 131/85 (100) Pulse Ox 99 O2 Delivery NIV Bilevel O2 Flow Rate 100.00 FiO2 100 I&O Intake and Output 04/14/22 00:00 Intake Total 0 ml Output Total 215 ml Balance -215 ml Intake Oral 0 ml Output Urine Total 215 ml General: Cooperative, Moderate Distress HEENT: Atraumatic, PERRLA Neck: Supple, No JVD, No Thyromegaly Lungs: Normal Air Movement, Other (Bilateral rhonchi) Heart: Normal S1, Normal S2, No Murmurs, Other (Tachycardia) Abdomen: Normal Bowel Sounds, Soft, No Tenderness, No Hepatosplenomegaly, No Masses Extremities: No Clubbing, No Cyanosis, No Edema, No Tenderness/Swelling Skin: No Rashes, No Breakdown, No Significant Lesion Neuro: Normal Tone, Sensation Intact Psych/Mental Status: Mood NL, Other (Lethargic) Results Lab Laboratory Tests 04/14/22 04:55 04/14/22 07:36 A/P-Cardiology Admission Diagnosis Acute respiratory failure Non-ST elevation myocardial infarction Coronary artery disease Congestive heart failure Assessment/Plan Acute hypoxemic hypercapnic respiratory failure Work-up showed DVT with high risk for pulmonary embolism Currently retaining CO2, patient maintained on BiPAP Patient and family requested DNR/DNI, overall poor prognosis Non-ST elevation myocardial infarction cardiac catheterization carried out showed heavily calcified coronary system with eccentric calcified plaque at the ostial LAD with 70% stenosis, proximal and mid LAD with 70 to 90% stenosis, total occlusion of the right PDA with collateral filling from the left system, calcified right coronary artery and circumflex artery with moderate disease. 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 Incidental finding total occlusion of the right SFA Continue to maximize medical therapy at this point. Patient will be referred for evaluation for bypass surgery versus high risk intervention if she become stable from her pulmonary status Congestive heart failure, severe left ventricular hypertrophy with normal systolic function Acute on chronic left ventricular diastolic dysfunction, normal systolic function. 2D echo done on April 10, 2022 with severe left ventricular hypertrophy and normal systolic function, ejection fraction 60%, calcified mitral and aortic valve. Severe pulmonary hypertension with PA pressure 65 to 70 mmHg Acute renal insufficiency, probably secondary to aggressive diuresis, I will stop Lasix on April 14, 2022. Continue to monitor fluid balance and renal function closely Hypertension, continue to monitor blood pressure Lipid profile done on April 11, 2022 total cholesterol 110, LDL 50. I am adding Lipitor 20 mg due to the extensive coronary and peripheral arterial disease with a heavy atherosclerotic disease. Diabetes mellitus, followed and managed by primary care physician History of tobaccoism in the remote past MIKE SHELTON MD Apr 14, 2022 09:04
--- NOTE | 2022-04-14 09:07 | Tele-ICU Progress Note ---
Subjective Date Seen by a Provider: Apr 14, 2022 Time Seen by a Provider: 09:06 Subjective/Events-last exam (Tele-ICU Physician , Progress Note ) Available chart/ vitals / labs / Images reviewed Video assessment done using teleICU camera, rest of exam as per RN Discussed with RN Events overnight : Afebrile hemodynamically stable Respiratory - avaps 100% I/O = even Drips: Pressors Consultants: Hospital course: (04/09) 76yr old female admitted with respiratory failure, pneumonia and UTI. NSTEMI. (04/10) Venous dopplers (+) DVT RLE. To cardiac metallurgy laboratory technician-LAD w/70-90% stenosis, total occlusion of PDA & being supplied by collaterals, heavily calcified RCA, heavily calcified aortic valve & mitral annulus, total occlusion of R SFA @ ostium. Not a candidate for surgery @ this time. medically manage. 04/12 - A/P Acute hypoxemic respiratory failure (hypoxemia, hypercapnia - on AVAPS rr 14 ( sp 20 ) 75% tv 425 MV 8L this am , now MV 23L since RR over 30 - more hypoxix and retaining more CO2 - settings increASED AND iv STEROID STARTED 04/12 - TODAY rR 40s , tv 480 mv 13 l STILL ON 100% RIVERA - with diuresis DVT RLE - on lovenox full dose NSTEMI - as per cards CHF -EF 60 % -lasix IV bid - minimal UO DM II -ISS id - EMPIRIC ABX - LEVOFLOXACIN - dose as per pharmacy delirium - precedex 1.0 DNI/DNR - awaiting for mfami;ly - as per RN - anticipating comfort measures IF FAMILY DECIDES TO CPM - WILL NEED NG FOR FEEDING, ABG , CENTRAL LINE , INTUBATION Lines : periph , (Central Line Necessity Reviewed) Marroquin: + OG: Nutrition: Analgesia: Anxiety/ delirium - precedex VTE Prophylaxis lovenox 80 bid Stress Ulcer Prophylaxis: ppi Plans in collaboration with bedside consultants and IM MDs. Discussed with RN to reach out if any questions or concerns A total of 32 minutes of critical care time was devoted to this patient today, required to treat and/or prevent further deterioration of critical care condition ( as above ) . I am remotely monitoring this patient from another state. I am unable to do the bedside exam, and history/physical and pertinent information is taken from other notes in the computer and bedside staff. I cannot take responsibility for the accuracy of this information. Sepsis Event Evaluation Height, Weight, BMI Height: '" Weight: lbs. oz. kg; 39.64 BMI Method: Exam Exam Patient acknowledged, consented, and participated in this virtual visit which was conducted using real time audio/video Vital Signs Date Time Temp Pulse Resp B/P (MAP) Pulse Ox O2 Delivery O2 Flow Rate FiO2 04/14/22 08:00 35.6 04/14/22 06:59 107 04/14/22 06:24 105 27 99 100.00 04/14/22 06:00 109 26 131/85 (100) 96 NIV Bilevel 100.00 04/14/22 05:00 112 32 127/88 (101) 97 NIV Bilevel 100.00 04/14/22 04:00 36.4 04/14/22 04:00 115 27 121/88 (99) 98 NIV Bilevel 100.00 04/14/22 04:00 NIV Bilevel 100 04/14/22 03:00 121 28 118/53 (74) 95 NIV Bilevel 100.00 04/14/22 02:18 112 27 99 100.00 04/14/22 02:00 111 19 132/81 (98) 97 NIV Bilevel 100.00 04/14/22 01:32 112 129/79 04/14/22 01:02 113 04/14/22 01:00 112 21 106/72 (83) 96 NIV Bilevel 100.00 04/14/22 00:00 NIV Bilevel 100 04/14/22 00:00 115 20 118/78 (91) 97 NIV Bilevel 100.00 04/14/22 00:00 36.6 04/13/22 23:11 118 17 118/78 (91) 96 NIV Bilevel 100.00 04/13/22 22:00 110 25 96 100.00 04/13/22 22:00 111 26 121/77 (92) 97 NIV Bilevel 100.00 04/13/22 21:00 112 28 109/71 (84) 95 NIV Bilevel 100.00 04/13/22 20:01 36.2 04/13/22 20:00 92 NIV Bilevel 100 04/13/22 20:00 114 19 126/73 (90) 97 NIV Bilevel 100.00 04/13/22 20:00 NIV Bilevel 100 04/13/22 19:00 118 04/13/22 19:00 118 21 122/82 (95) 97 NIV Bilevel 100.00 04/13/22 18:36 111 20 96 40.00 04/13/22 18:00 110 32 103/63 (76) 96 NIV Bilevel 100.00 04/13/22 17:00 112 32 126/93 (104) 95 NIV Bilevel 100.00 04/13/22 16:00 114 21 121/76 (91) 96 NIV Bilevel 100.00 04/13/22 16:00 NIV Bilevel 100 04/13/22 16:00 NIV Bilevel 100 04/13/22 15:00 113 24 126/82 (97) 96 NIV Bilevel 100.00 04/13/22 14:28 107 25 96 100.00 04/13/22 14:00 116 20 139/99 (112) 97 NIV Bilevel 100.00 04/13/22 13:58 115 110/73 04/13/22 13:21 116 04/13/22 13:00 116 23 156/86 (109) 97 NIV Bilevel 100.00 04/13/22 12:00 NIV Bilevel 100 04/13/22 12:00 36.0 04/13/22 12:00 118 26 150/95 (113) 97 NIV Bilevel 100.00 04/13/22 11:00 118 23 171/86 (114) 97 NIV Bilevel 100.00 04/13/22 10:16 112 20 98 100.00 04/13/22 10:00 112 16 132/69 (90) 98 NIV Bilevel 100.00 I & O 04/14/22 07:00 Intake Total 250 ml Output Total 270 ml Balance -20 ml Height & Weight Height: '" Weight: lbs. oz. kg; 39.64 BMI Method: General Appearance: Chronically ill, Obese HEENT: PERRL/EOMI, Pharynx Normal Neck: Normal Inspection, Supple Respiratory: Lungs Clear, No Respiratory Distress Cardiovascular: Regular Rate, Rhythm, No Murmur Capillary Refill: Less Than 3 Seconds Extremity: Pedal Edema Neurologic/Psychiatric: Alert, Disoriented Skin: Normal Color, Warm/Dry Lymphatic: No Adenopathy Results Lab Laboratory Tests 04/12/22 16:30 04/13/22 05:15 04/14/22 04:55 10/19/22 07:36 Assessment/Plan Assessment/Plan 1 HARESH HUSSEIN MD Apr 14, 2022 09:07
--- NOTE | 2022-04-14 09:11 | Progress Note - Hospitalist ---
Subjective HPI/CC On Admission Date Seen by Provider: Apr 14, 2022 Irvin Lopez is a 76 year old female with PMH HTN, HLD, T2DM, TIA, who presented with shortness of breath. She has been at a long-term in [place], [place]. She went to the ER at [facility]. She denies chest pain and palpitations. She denies cough. She denies fevers and chills. She has not noticed leg swelling. She denies abdominal pain, nausea, vomiting, and diarrhea. Subjective/Events-last exam Pt remains on BiPAP. Not speaking today. No family at bedside. RN reports daughter arrived yesterday and granddaughter to be here today. Objective Exam Vital Signs Vital Signs Date Time Temp Pulse Resp B/P (MAP) Pulse Ox O2 Delivery O2 Flow Rate FiO2 04/14/22 08:00 35.6 04/14/22 06:59 107 04/14/22 06:24 27 99 100.00 04/14/22 06:00 131/85 (100) NIV Bilevel 04/14/22 04:00 100 Capillary Refill : Less Than 3 Seconds General Appearance: No Apparent Distress, Chronically ill, Obese Respiratory: Lungs Clear, No Respiratory Distress Cardiovascular: Regular Rate, Rhythm, No Murmur Neurologic/Psychiatric: Alert, Oriented x3 Results/Procedures Lab Laboratory Tests 04/14/22 04:55 04/14/22 07:36 Patient resulted labs reviewed. Imaging: Reviewed Imaging Report Assessment/Plan Assessment and Plan Assess & Plan/Chief Complaint Acute respiratory failure with hypoxia and hypercapnia Cardiogenic shock Significant oxygen requirement ABG with acute hypercapnia BiPAP dependent TeleICU following CTA chest with no PE, groundglass opacities, pleural effusions Continue Lasix Continue Levophed to keep MPA >65 Acute DVT Venous doppler with acute lower extremity DVT Therapeutic Lovenox NSTEMI Multivessel CAD Troponin significantly elevated Cardiology consulted Left heart cath with multi-vessel disease UTI Urine culture with entrococcus and pseudomonas Continue Levaquin per sensitivities HTN HLD T2DM TIA Resume home meds as appropriate Critical Care Critically Ill Patient LILLI JANE MD Apr 14, 2022 09:11
[2022-04-14 10:46] VITALS: BP 95/72
[2022-04-14] MEDS: DOCUSATE SODIUM 100 MG (COLACE) CAP PO SCH ×2 (11:38→21:00)
[2022-04-14] MEDS: ASPIRIN E.C. 81 MG (ECOTRIN) TAB PO SCH (11:38)
[2022-04-14] MEDS: SENNOSIDES 8.6 MG (SENOKOT) TAB PO SCH ×2 (11:38→21:00)
[2022-04-14] MEDS: meTOprolol TARTRATE 25 MG (LOPRESSOR) TABLET PO SCH ×2 (11:38→21:00)
[2022-04-14] MEDS: PANTOPRAZOLE 40 MG (PROTONIX) TAB PO SCH (11:38)
[2022-04-14 15:09] VITALS: BP 99/57
[2022-04-14 18:43] VITALS: BP 88/79
[2022-04-14 22:16] VITALS: BP 156/110
[2022-04-15] MEDS: inSUlin ASPART (NovoLOG) 1 UNIT/0.01 ML (CHARGE PER UNIT) SC SCH ×5 (00:19→23:43)
[2022-04-15] MEDS: methylPREDNISolone 40 MG/ML (Solu-MEDROL) VIAL IV SCH ×5 (00:19→23:43)
[2022-04-15] MEDS: NOREPINEPHRINE 8 MG/250 ML 250 ML IV SCH ×2 (00:20→04:45)
[2022-04-15 02:29] VITALS: BP 104/85
[2022-04-15] MEDS: RT-ALBUTEROL/IPRATROPIUM 3 ML (DUONEB) VIAL INH SCH ×6 (02:29→22:23)
[2022-04-15] MEDS: DexMEDEtomidine 250 ML DRIP 250 ML IV SCH ×3 (04:50→18:50)
[2022-04-15 05:14] LABS: BASOPHILS % (AUTO) 0 % (0-10); EOSINOPHILS % (AUTO) 0 % (0-10); HEMATOCRIT 28 % (35-52); HEMOGLOBIN 8.3 g/dL (11.5-16.0); LYMPHOCYTES # (AUTO) 0.3 10^3/uL (1.0-4.0); LYMPHOCYTES % (AUTO) 2 % (12-44); MEAN CORPUSCULAR HEMOGLOBIN 26 pg (25-34); MEAN CORPUSCULAR HGB CONC 29 g/dL (32-36); MEAN CORPUSCULAR VOLUME 88 fL (80-99); MEAN PLATELET VOLUME 10.6 fL (9.0-12.2); MONOCYTES # (AUTO) 0.6 10^3/uL (0.0-1.0); MONOCYTES % (AUTO) 5 % (0-12); NEUTROPHILS # (AUTO) 11.3 10^3/uL (1.8-7.8); NEUTROPHILS % (AUTO) 93 % (42-75); PLATELET COUNT 244 10^3/uL (130-400); WHITE BLOOD COUNT 12.2 10^3/uL (4.3-11.0)
[2022-04-15 05:47] LABS: CALCIUM 8.9 MG/DL (8.5-10.1); CREATININE SERUM 1.91 MG/DL (0.60-1.30); MAGNESIUM 1.9 MG/DL (1.6-2.4); POTASSIUM 4.9 MMOL/L (3.6-5.0)
[2022-04-15] MEDS: POTASSIUM CL 10MEQ/50ML IVPB 50 ML IV SCH (06:09)
[2022-04-15 06:10] LABS: ANISOCYTOSIS SLIGHT; BAND NEUTROPHILS 1 %; BURR CELLS SLIGHT; ELLIPT/OVALOCYTES SLIGHT; HYPOCHROMASIA SLIGHT; LYMPHOCYTES % (MANUAL) 3 %; MONOCYTES % (MANUAL) 1 %; NEUTROPHILS % (MANUAL) 95 %
[2022-04-15] MEDS: KCL 20 MEQ TAB (K-DUR) PO SCH (06:10)
[2022-04-15] MEDS: MAGNESIUM 1 GM/100 ML IVPB 100 ML IV SCH (06:10)
[2022-04-15 07:17] VITALS: BP 111/77
--- NOTE | 2022-04-15 08:55 | Cardiology Progress Note ---
Subjective Date Seen by Provider: Apr 15, 2022 Time Seen by Provider: 08:54 Subjective/Events-last exam Patient was seen at bedside lethargic, on BiPAP Objective-Cardiology Exam Last Set of Vital Signs Vital Signs 04/15/22 04/15/22 04/15/22 04/15/22 04:00 06:00 07:17 08:00 Temp 35.8 Pulse 98 Resp 37 B/P (MAP) 105/66 (79) Pulse Ox 97 O2 Delivery NIV Bilevel O2 Flow Rate 100.00 FiO2 100 I&O Intake and Output 04/15/22 00:00 Intake Total 250 ml Output Total 325 ml Balance -75 ml Intake Oral 0 ml IV Total 250 ml Output Urine Total 325 ml # Bowel Movements 1 General: Cooperative, Moderate Distress HEENT: Atraumatic, PERRLA Neck: Supple, No JVD, No Thyromegaly Lungs: Normal Air Movement, Other (Bilateral rhonchi) Heart: Normal S1, Normal S2, No Murmurs, Other (Tachycardia) Abdomen: Normal Bowel Sounds, Soft, No Tenderness, No Hepatosplenomegaly, No Masses Extremities: No Clubbing, No Cyanosis, No Edema, No Tenderness/Swelling Skin: No Rashes, No Breakdown, No Significant Lesion Neuro: Normal Tone, Sensation Intact Psych/Mental Status: Mood NL, Other (Lethargic) Results Lab Laboratory Tests 04/15/22 04:55 A/P-Cardiology Admission Diagnosis Acute respiratory failure Non-ST elevation myocardial infarction Coronary artery disease Congestive heart failure Assessment/Plan Acute hypoxemic hypercapnic respiratory failure Work-up showed DVT with high risk for pulmonary embolism Currently retaining CO2, patient maintained on BiPAP Patient and family requested DNR/DNI, overall poor prognosis Non-ST elevation myocardial infarction cardiac catheterization carried out showed heavily calcified coronary system with eccentric calcified plaque at the ostial LAD with 70% stenosis, proximal and mid LAD with 70 to 90% stenosis, total occlusion of the right PDA with collateral filling from the left system, calcified right coronary artery and circumflex artery with moderate disease. 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 Incidental finding total occlusion of the right SFA Continue to maximize medical therapy at this point. Due to her advanced respiratory failure, she is not a candidate for referral for bypass surgery or high risk intervention at this point. Congestive heart failure, severe left ventricular hypertrophy with normal systolic function Acute on chronic left ventricular diastolic dysfunction, normal systolic function. 2D echo done on April 10, 2022 with severe left ventricular hypertrophy and normal systolic function, ejection fraction 60%, calcified mitral and aortic valve. Severe pulmonary hypertension with PA pressure 65 to 70 mmHg Acute renal insufficiency, probably secondary to aggressive diuresis, I will stop Lasix on April 14, 2022. Continue to monitor fluid balance and renal function closely Hypertension, continue to monitor blood pressure Lipid profile done on April 11, 2022 total cholesterol 110, LDL 50. I am adding Lipitor 20 mg due to the extensive coronary and peripheral arterial disease with a heavy atherosclerotic disease. Diabetes mellitus, followed and managed by primary care physician History of tobaccoism in the remote past MIKE SHELTON MD Apr 15, 2022 08:55
--- NOTE | 2022-04-15 09:18 | Progress Note - Hospitalist ---
Subjective HPI/CC On Admission Date Seen by Provider: Apr 15, 2022 Irvin Lopez is a 76 year old female with PMH HTN, HLD, T2DM, TIA, who presented with shortness of breath. She has been at a [place] [facility] in [place], [place]. She went to the ER at [facility]. She denies chest pain and palpitations. She denies cough. She denies fevers and chills. She has not noticed leg swelling. She denies abdominal pain, nausea, vomiting, and diarrhea. Subjective/Events-last exam Pt reports lying in bed on BiPAP. Sleeping soundly. RN reports no concerns. Satting 97%. I titrated down to 90% while at bedside. Objective Exam Vital Signs Vital Signs Date Time Temp Pulse Resp B/P (MAP) Pulse Ox O2 Delivery O2 Flow Rate FiO2 04/15/22 08:00 35.8 04/15/22 08:00 97 04/15/22 07:17 37 97 100.00 04/15/22 06:00 105/66 (79) NIV Bilevel 04/15/22 04:00 100 Capillary Refill : Less Than 3 Seconds General Appearance: Chronically ill Respiratory: No Accessory Muscle Use, Decreased Breath Sounds Cardiovascular: Regular Rate, Rhythm, No Murmur Gastrointestinal: Normal Bowel Sounds, Soft Extremity: Pedal Edema Neurologic/Psychiatric: Alert Results/Procedures Lab Laboratory Tests 04/15/22 04:55 Patient resulted labs reviewed. Imaging: Reviewed Imaging Report Assessment/Plan Assessment and Plan Assess & Plan/Chief Complaint Acute respiratory failure with hypoxia and hypercapnia Cardiogenic shock Significant oxygen requirement ABG with acute hypercapnia BiPAP dependent- weaning oxygen down TeleICU following CTA chest with no PE, groundglass opacities, pleural effusions Continue Lasix Levophed to keep MPA >65 Consider LTCAH referral RIVERA Oliguria but continue to make urine daily and weaning oxygen K normal and not acidotic Trend Acute DVT Venous doppler with acute lower extremity DVT Therapeutic Lovenox NSTEMI Multivessel CAD Troponin significantly elevated Cardiology consulted Left heart cath with multi-vessel disease UTI Urine culture with enterococcus and pseudomonas Continue Levaquin per sensitivities HTN HLD T2DM TIA Continue home meds as appropriate Met with patient and family yesterday. Discussed prognosis and goals of care. Patient remains a DNR/DNI but would like to continue on BiPAP for now. Critical Care Critically Ill Patient LILLI JANE MD Apr 15, 2022 09:18
[2022-04-15] MEDS: DOCUSATE SODIUM 100 MG (COLACE) CAP PO SCH ×2 (09:30→22:15)
[2022-04-15] MEDS: ASPIRIN E.C. 81 MG (ECOTRIN) TAB PO SCH (09:30)
[2022-04-15] MEDS: SENNOSIDES 8.6 MG (SENOKOT) TAB PO SCH ×2 (09:30→21:00)
[2022-04-15] MEDS: meTOprolol TARTRATE 25 MG (LOPRESSOR) TABLET PO SCH ×2 (09:30→21:00)
[2022-04-15] MEDS: PANTOPRAZOLE 40 MG (PROTONIX) TAB PO SCH (09:30)
--- NOTE | 2022-04-15 09:41 | Tele-ICU Progress Note ---
Subjective Date Seen by a Provider: Apr 15, 2022 Time Seen by a Provider: 09:41 Subjective/Events-last exam (Tele-ICU Physician , Progress Note ) Available chart/ vitals / labs / Images reviewed Video assessment done using teleICU camera, rest of exam as per RN Discussed with RN Events overnight : Afebrile hemodynamically stable Respiratory - avaps 100% I/O = even Drips: Pressors Consultants: Hospital course: (04/09) 76yr old female admitted with respiratory failure, pneumonia and UTI. NSTEMI. (04/10) Venous dopplers (+) DVT RLE. 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 Not a candidate for surgery @ this time. medically manage. 04/12 - A/P Acute hypoxemic respiratory failure (hypoxemia, hypercapnia - on AVAPS rr 14 ( sp 20 ) 75% tv 425 MV 8L this am , now MV 23L since RR over 30 - more hypoxic and retaining more CO2 - settings increASED AND iv STEROID STARTED 04/12 - TODAY rR 27s , tv 500 mv 13 l STILL ON 90% - will repeat cxr and abg since family can not make a desision regarding goal of care RIVERA - with diuresis? - worsening - will start NS and follow DVT RLE - on lovenox full dose NSTEMI - as per cards CHF -EF 60 % -lasix stopped with RIVERA DM II -ISS id - EMPIRIC ABX - LEVOFLOXACIN - dose as per pharmacy delirium - precedex 1.0 DNI/DNR - were awaiting for famiy , family can not make desision regarding goal of care despite multiple discussion by bedside MD yesterday IF FAMILY DECIDES TO CPM - WILL NEED NG FOR FEEDING, ABG , PIC , and most likely INTUBATION Lines : periph , (Central Line Necessity Reviewed) Marroquin: + OG: Nutrition: Analgesia: Anxiety/ delirium - precedex VTE Prophylaxis lovenox 80 bid Stress Ulcer Prophylaxis: ppi Plans in collaboration with bedside consultants and IM MDs. Discussed with RN to reach out if any questions or concerns A total of 32 minutes of critical care time was devoted to this patient today, required to treat and/or prevent further deterioration of critical care condition ( as above ) . I am remotely monitoring this patient from another state. I am unable to do the bedside exam, and history/physical and pertinent information is taken from other notes in the computer and bedside staff. Sepsis Event Evaluation Height, Weight, BMI Height: '" Weight: lbs. oz. kg; 39.85 BMI Method: Exam Exam Patient acknowledged, consented, and participated in this virtual visit which was conducted using real time audio/video Vital Signs Date Time Temp Pulse Resp B/P (MAP) Pulse Ox O2 Delivery O2 Flow Rate FiO2 04/15/22 08:00 35.8 04/15/22 08:00 97 04/15/22 07:17 98 37 97 100.00 04/15/22 06:00 106 26 105/66 (79) 98 NIV Bilevel 100.00 04/15/22 05:40 106 147/87 04/15/22 05:37 107 118/89 04/15/22 05:35 106 118/89 04/15/22 05:25 105 170/95 04/15/22 05:20 110 211/120 04/15/22 05:00 121 28 115/76 (89) 95 NIV Bilevel 100.00 04/15/22 04:50 122 85/57 04/15/22 04:45 118 72/37 04/15/22 04:00 116 27 85/57 (66) 95 NIV Bilevel 100.00 04/15/22 04:00 93 NIV Bilevel 100 04/15/22 03:00 105 30 146/91 (109) 84 NIV Bilevel 100.00 04/15/22 02:29 96 27 99 100.00 04/15/22 02:00 96 13 122/74 (90) 98 NIV Bilevel 100.00 04/15/22 01:00 89 20 121/90 (100) 97 NIV Bilevel 100.00 04/15/22 01:00 98 04/15/22 00:08 35.1 04/15/22 00:01 96 NIV Bilevel 100 04/15/22 00:00 97 109/84 (92) 94 NIV Bilevel 100.00 04/14/22 23:00 96 18 138/92 (107) 98 NIV Bilevel 100.00 04/14/22 22:16 98 29 93 100.00 04/14/22 22:00 97 17 134/100 (111) 99 NIV Bilevel 100.00 04/14/22 21:00 100 23 150/63 (92) 89 NIV Bilevel 100.00 04/14/22 20:00 96 NIV Bilevel 100 04/14/22 20:00 101 21 110/65 (80) 98 NIV Bilevel 100.00 04/14/22 19:58 35.8 04/14/22 19:00 105 04/14/22 19:00 101 27 130/66 (87) 97 NIV Bilevel 100.00 04/14/22 18:43 101 35 96 100.00 04/14/22 18:00 98 14 117/73 (88) 95 NIV Bilevel 100.00 04/14/22 17:05 101 109/89 04/14/22 17:00 104 14 106/89 (95) 95 NIV Bilevel 100.00 04/14/22 16:15 NIV Bilevel 100 04/14/22 16:00 109 20 122/59 (80) 93 NIV Bilevel 100.00 04/14/22 15:09 99 27 94 100.00 04/14/22 15:00 99 10 99/57 (71) 96 NIV Bilevel 100.00 04/14/22 14:57 99 04/14/22 14:30 101 04/14/22 14:00 99 18 107/61 (76) 89 NIV Bilevel 100.00 04/14/22 13:00 103 12 94/82 (86) 89 NIV Bilevel 100.00 04/14/22 12:32 102 04/14/22 12:10 NIV Bilevel 100 04/14/22 12:00 103 19 106/64 (78) 96 NIV Bilevel 100.00 04/14/22 11:00 104 34 106/62 (77) 94 NIV Bilevel 100.00 04/14/22 10:46 100 35 92 100.00 04/14/22 10:00 97 9 109/60 (76) 93 NIV Bilevel 100.00 I & O 04/15/22 07:00 Intake Total 250 ml Output Total 350 ml Balance -100 ml Height & Weight Height: '" Weight: lbs. oz. kg; 39.85 BMI Method: General Appearance: Chronically ill HEENT: PERRL/EOMI, Pharynx Normal Neck: Normal Inspection, Supple Respiratory: No Accessory Muscle Use, Decreased Breath Sounds Cardiovascular: Regular Rate, Rhythm, No Murmur Capillary Refill: Less Than 3 Seconds Extremity: Pedal Edema Neurologic/Psychiatric: Alert Skin: Normal Color, Warm/Dry Lymphatic: No Adenopathy Results Lab Laboratory Tests 04/14/22 04:55 04/14/22 07:36 04/15/22 04:55 Assessment/Plan Assessment/Plan 1 HARESH HUSSEIN MD Apr 15, 2022 09:41
--- NOTE | 2022-04-15 10:37 | Diagnostic Imaging Report ---
INDICATION: Hypoxia. Comparison is made with prior exam of 04/12/2022. FINDINGS: The heart size is normal. There is an infiltrate in the medial aspect of the right lung base. There is no pleural effusion or pneumothorax. Mediastinum is unremarkable. IMPRESSION: Persistent infiltrate in the medial right lung base suspect for pneumonia. Some left basilar atelectasis and/or pneumonitis is also suspected. Dictated by: Dictated on workstation # [id number]
[2022-04-15 10:40] VITALS: BP 131/64
[2022-04-15 10:53] LABS: ABG BASE EXCESS 1.3 MMOL/L (-2.5-2.5); ABG OXYGEN SATURATION 98 % (94-100); ABG PCO2 41 MMHG (35-45); ABG PH 7.41 (7.37-7.43); ABG PO2 86 MMHG (79-93); ABG TCO2 27.1 MMOL/L (21.0-31.0)
[2022-04-15 10:54] LABS: ALLENS TEST YES-POS; INSPIRED O2 100%; PATIENT TEMP 35.6; VENTILATOR NO
[2022-04-15] MEDS: NS IV 1000 ML 1,000 ML IV SCH ×2 (11:51→20:53)
--- NOTE | 2022-04-15 13:24 | Diagnostic Imaging Report ---
EXAMINATION: Chest 1 view HISTORY: NG tube placement COMPARISON: 04/25/2022 FINDINGS: Heart size and pulmonary vasculature are normal. There are patchy interstitial opacities within the mid and lower lungs. No pleural effusion or pneumothorax. Degenerative changes of the thoracic spine. Osseous structures are otherwise intact. An enteric catheter is present coursing below the diaphragm. Sidehole and tip located within the left upper quadrant. IMPRESSION: 1. Perihilar and interstitial opacities in the lung bases, unchanged. 2. Enteric catheter within the expected location of the stomach and the left upper quadrant. Dictated by: Dictated on workstation # [id number]
[2022-04-15 13:57] VITALS: BP 116/69
[2022-04-15 18:33] VITALS: BP 120/61
[2022-04-15] MEDS: ENOXAPARIN 80 MG/0.8 ML (LOVENOX) SYR SC SCH (20:54)
[2022-04-15 22:24] VITALS: BP 116/32
[2022-04-16 00:13] VITALS: BP 105/66
[2022-04-16 01:54] VITALS: BP 116/103
[2022-04-16] MEDS: RT-ALBUTEROL/IPRATROPIUM 3 ML (DUONEB) VIAL INH SCH ×2 (01:54→06:30)
[2022-04-16 05:33] LABS: BASOPHILS % (AUTO) 0 % (0-10); EOSINOPHILS % (AUTO) 0 % (0-10); HEMATOCRIT 26 % (35-52); HEMOGLOBIN 8.1 g/dL (11.5-16.0); LYMPHOCYTES # (AUTO) 0.2 10^3/uL (1.0-4.0); LYMPHOCYTES % (AUTO) 1 % (12-44); MEAN CORPUSCULAR HEMOGLOBIN 26 pg (25-34); MEAN CORPUSCULAR HGB CONC 31 g/dL (32-36); MEAN CORPUSCULAR VOLUME 85 fL (80-99); MEAN PLATELET VOLUME 10.4 fL (9.0-12.2); MONOCYTES # (AUTO) 0.7 10^3/uL (0.0-1.0); MONOCYTES % (AUTO) 4 % (0-12); NEUTROPHILS # (AUTO) 14.2 10^3/uL (1.8-7.8); NEUTROPHILS % (AUTO) 94 % (42-75); PLATELET COUNT 218 10^3/uL (130-400); WHITE BLOOD COUNT 15.1 10^3/uL (4.3-11.0)
[2022-04-16] MEDS: methylPREDNISolone 40 MG/ML (Solu-MEDROL) VIAL IV SCH ×2 (05:41→12:01)
[2022-04-16] MEDS: NS IV 1000 ML 1,000 ML IV SCH (05:41)
[2022-04-16 05:48] LABS: POTASSIUM 4.1 MMOL/L (3.6-5.0)
[2022-04-16 05:50] LABS: CALCIUM 8.3 MG/DL (8.5-10.1)
[2022-04-16 05:54] LABS: CREATININE SERUM 1.47 MG/DL (0.60-1.30)
[2022-04-16 05:56] LABS: MAGNESIUM 1.9 MG/DL (1.6-2.4)
[2022-04-16] MEDS: POTASSIUM CL 10MEQ/50ML IVPB 50 ML IV SCH (05:57)
[2022-04-16] MEDS: inSUlin ASPART (NovoLOG) 1 UNIT/0.01 ML (CHARGE PER UNIT) SC SCH ×2 (05:58→11:50)
[2022-04-16] MEDS: KCL 20 MEQ TAB (K-DUR) PO SCH (05:58)
[2022-04-16] MEDS: MAGNESIUM 1 GM/100 ML IVPB 100 ML IV SCH (06:26)
[2022-04-16] MEDS: meTOprolol TARTRATE 25 MG (LOPRESSOR) TABLET PO SCH (09:00)
[2022-04-16] MEDS: DOCUSATE SODIUM 100 MG (COLACE) CAP PO SCH (09:00)
--- NOTE | 2022-04-16 09:01 | Tele-ICU Progress Note ---
Subjective Date Seen by a Provider: Apr 16, 2022 Subjective/Events-last exam This virtual visit was conducted using real time audio/video. Thank you for asking us to see this patient for respiratory insufficiency due to thromboembolic disease, pna. Also NSTEM, severe CAD for medical rxI. Probable underlying COPD. . Former smoker. PE: VSS. Obese. O2 sat 97% on BiPAP 16/12, 80%. HEENT: No obvious masses, adenopathy or JVD. Chest: Very diminished on auscultation. CV: RRR S1 S2 No murmur or added sounds. Abd: Non-tender. Bowel sounds Y. : Unremarkable. Marroquin Y. DIRECTOR OF ADULT EPILEPSY/psychiatric: Grossly intact. No obvious focal findings. Extremities: Trace edema. Capillary refill < 3 seconds. Skin: unremarkable. Results: Elevated WCC 15.1. Decreased Hb 8.1. AB.41/41/86 on 80%. CXR: Hyperinflated, RML infilt. Available chart/ vitals / labs / images reviewed. Video assessment done using teleICU camera, rest of exam as per RN. A/P: Respiratory insufficiency: Continue present management with BiPAP, duonebs, medrol. Family considering. Possible LTAC placement Monitor for increasing oxygenation needs. DNR/DNI. Critical Care: critically ill patient. Cont. abx., metop., PPI, SSI, Tio., statin, ASA. Discussed with RN CJ. Asked RN to reach out to eICU if any questions or concerns later. Time spent with patient/coordination of care with other health professionals (mins): 31 Sepsis Event Evaluation Height, Weight, BMI Height: '" Weight: lbs. oz. kg; 39.18 BMI Method: Exam Exam Patient acknowledged, consented, and participated in this virtual visit which was conducted using real time audio/video Vital Signs Date Time Temp Pulse Resp B/P (MAP) Pulse Ox O2 Delivery O2 Flow Rate FiO2 04/16/22 08:00 104 25 100/75 (83) 96 NIV Bilevel 80.00 04/16/22 07:55 36.6 04/16/22 07:00 98 26 112/99 (103) 99 NIV Bilevel 85.00 04/16/22 06:30 95 32 97 85.00 04/16/22 06:00 93 26 104/76 (85) 99 NIV Bilevel 100.00 04/16/22 05:00 96 27 115/57 (76) 99 NIV Bilevel 100.00 04/16/22 04:00 98 43 126/111 (116) 99 NIV Bilevel 100.00 04/16/22 04:00 96 NIV Bilevel 100 04/16/22 03:00 98 27 129/71 (90) 99 NIV Bilevel 100.00 04/16/22 02:00 96 37 134/86 (102) 99 NIV Bilevel 100.00 04/16/22 01:54 91 34 99 100.00 04/16/22 01:00 90 21 102/79 (87) 99 NIV Bilevel 100.00 04/16/22 00:47 90 04/16/22 00:13 35.8 97 97 100 04/16/22 00:01 96 NIV Bilevel 100 04/16/22 00:00 92 26 114/73 (87) 99 NIV Bilevel 100.00 04/15/22 23:00 95 21 110/72 (85) 97 NIV Bilevel 100.00 04/15/22 22:24 89 27 98 100.00 04/15/22 22:00 89 27 114/58 (76) 98 NIV Bilevel 100.00 04/15/22 21:00 91 15 114/59 (77) 99 NIV Bilevel 100.00 04/15/22 20:00 96 NIV Bilevel 100 04/15/22 20:00 95 7 90/54 (66) 98 NIV Bilevel 100.00 04/15/22 19:00 97 10 86/73 (77) 97 NIV Bilevel 100.00 04/15/22 18:56 98 04/15/22 18:50 92 104/59 04/15/22 18:33 81 27 97 100.00 04/15/22 18:00 88 27 108/71 (83) 98 NIV Bilevel 90.00 04/15/22 17:00 91 29 111/89 (96) 97 NIV Bilevel 90.00 04/15/22 16:00 98 NIV Bilevel 100 04/15/22 16:00 92 29 126/72 (90) 90 NIV Bilevel 90.00 04/15/22 16:00 35.9 04/15/22 15:00 96 30 127/65 (85) 99 NIV Bilevel 90.00 04/15/22 14:00 96 17 84/66 (72) 100 NIV Bilevel 90.00 04/15/22 13:57 96 28 100 100.00 04/15/22 13:50 97 04/15/22 13:00 98 26 116/69 (85) 88 NIV Bilevel 90.00 04/15/22 12:09 98 21 128/64 (85) 98 NIV Bilevel 90.00 04/15/22 12:00 97 NIV Bilevel 100 04/15/22 11:58 35.6 04/15/22 11:00 100 25 127/67 (87) 88 NIV Bilevel 90.00 04/15/22 10:40 94 35 95 90.00 04/15/22 10:00 93 32 131/64 (86) 97 NIV Bilevel 90.00 04/15/22 09:00 94 21 97/78 (84) 95 NIV Bilevel 90.00 I & O 04/16/22 07:00 Intake Total 1000 ml Output Total 850 ml Balance 150 ml Height & Weight Height: '" Weight: lbs. oz. kg; 39.18 BMI Method: General Appearance: Chronically ill HEENT: PERRL/EOMI, Pharynx Normal Neck: Normal Inspection, Supple Respiratory: No Accessory Muscle Use, Decreased Breath Sounds Cardiovascular: Regular Rate, Rhythm, No Murmur Capillary Refill: Less Than 3 Seconds Extremity: Pedal Edema Neurologic/Psychiatric: Alert Skin: Normal Color, Warm/Dry Lymphatic: No Adenopathy Results Lab Laboratory Tests 04/15/22 04:55 04/16/22 05:07 Assessment/Plan Assessment/Plan See free text. Critical Care: Critically Ill Patient MARJORIE RAY MD Apr 16, 2022 09:00
--- NOTE | 2022-04-16 10:11 | Cardiology Progress Note ---
Subjective Date Seen by Provider: Apr 16, 2022 Time Seen by Provider: 10:10 Subjective/Events-last exam Patient was seen at bedside, laying down comfortably. Sleeping Objective-Cardiology Exam Last Set of Vital Signs Vital Signs 04/16/22 04/16/22 04/16/22 04/16/22 04:00 07:55 09:00 09:32 Temp 36.6 Pulse 104 Resp 21 B/P (MAP) 103/63 (76) Pulse Ox 97 O2 Delivery NIV Bilevel O2 Flow Rate 70.00 FiO2 100 I&O Intake and Output 04/16/22 00:00 Intake Total 1250 ml Output Total 775 ml Balance 475 ml Intake Oral 0 ml IV Total 1250 ml Output Urine Total 425 ml Gastric Drainage Total 350 ml General: Moderate Distress HEENT: Atraumatic, PERRLA Neck: Supple, No JVD, No Thyromegaly Lungs: Normal Air Movement, Other (Bilateral rhonchi) Heart: Normal S1, Normal S2, No Murmurs, Other (Tachycardia) Abdomen: Normal Bowel Sounds, Soft, No Tenderness, No Hepatosplenomegaly, No Masses Extremities: No Clubbing, No Cyanosis, No Edema, No Tenderness/Swelling Skin: No Rashes, No Breakdown, No Significant Lesion Neuro: Normal Tone, Sensation Intact Psych/Mental Status: Mood NL, Other (Lethargic) Results Lab Laboratory Tests 04/16/22 05:07 A/P-Cardiology Admission Diagnosis Acute respiratory failure Non-ST elevation myocardial infarction Coronary artery disease Congestive heart failure Assessment/Plan Acute hypoxemic hypercapnic respiratory failure Work-up showed DVT with high risk for pulmonary embolism Currently retaining CO2, patient maintained on BiPAP Patient and family requested DNR/DNI, overall poor prognosis Non-ST elevation myocardial infarction cardiac catheterization carried out showed heavily calcified coronary system with eccentric calcified plaque at the ostial LAD with 70% stenosis, proximal and mid LAD with 70 to 90% stenosis, total occlusion of the right PDA with collateral filling from the left system, calcified right coronary artery and circumflex artery with moderate disease. 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 Incidental finding total occlusion of the right SFA Continue to maximize medical therapy at this point. Due to her advanced respiratory failure, she is not a candidate for referral for bypass surgery or high risk intervention at this point. Congestive heart failure, severe left ventricular hypertrophy with normal systolic function Acute on chronic left ventricular diastolic dysfunction, normal systolic function. 2D echo done on April 10, 2022 with severe left ventricular hypertrophy and normal systolic function, ejection fraction 60%, calcified mitral and aortic valve. Severe pulmonary hypertension with PA pressure 65 to 70 mmHg Acute renal insufficiency, probably secondary to aggressive diuresis, I will stop Lasix on April 14, 2022. Continue to monitor fluid balance and renal function closely Hypertension, continue to monitor blood pressure Lipid profile done on April 11, 2022 total cholesterol 110, LDL 50. I am adding Lipitor 20 mg due to the extensive coronary and peripheral arterial disease with a heavy atherosclerotic disease. Diabetes mellitus, followed and managed by primary care physician History of tobaccoism in the remote past MIKE SHELTON MD Apr 16, 2022 10:11
[2022-04-16 11:18] LABS: OCCULT BLOOD,GASTRIC FLUID POSITIVE (NEGATIVE)
[2022-04-16] MEDS: NOREPINEPHRINE 8 MG/250 ML 250 ML IV SCH (11:40)
[2022-04-16 12:01] VITALS: BP 104/62
[2022-04-16] MEDS: DexMEDEtomidine 250 ML DRIP 250 ML IV SCH (12:01)
[2022-04-16] MEDS: SENNOSIDES 8.6 MG (SENOKOT) TAB PO SCH (12:01)
[2022-04-16] MEDS: ASPIRIN E.C. 81 MG (ECOTRIN) TAB PO SCH (12:01)
[2022-04-16] MEDS: PANTOPRAZOLE 40 MG (PROTONIX) TAB PO SCH (12:01)
--- NOTE | 2022-04-16 14:41 | Discharge Summary ---
Diagnosis/Chief Complaint Date of Admission Apr 09, 2022 at 20:57 Date of Discharge Discharge Date: Apr 16, 2022 Admission Diagnosis Acute respiratory failure with hypoxia and hypercapnia Primary Care No,Local Physician Discharge Diagnosis (1) Acute respiratory failure with hypoxia and hypercapnia Status: Acute (2) DVT (deep venous thrombosis) Status: Acute (3) NSTEMI (non-ST elevation myocardial infarction) Status: Acute (4) Multiple vessel coronary artery disease Status: Acute (5) UTI (urinary tract infection) Status: Acute (6) Obesity Status: Chronic (7) HTN (hypertension) Status: Chronic (8) HLD (hyperlipidemia) Status: Chronic (9) T2DM (type 2 diabetes mellitus) Status: Chronic Discharge Summary Discharge Physical Exam Allergies: Coded Allergies: No Allergy Information Available (Unverified , 04/09/22) Vitals & I&Os Vital Signs Date Time Temp Pulse Resp B/P (MAP) Pulse Ox O2 Delivery O2 Flow Rate FiO2 04/16/22 15:00 116 13 97 NIV Bilevel 70.00 04/16/22 11:59 36.5 04/16/22 04:00 100 Hospital Course Labs (last 24 hrs) Laboratory Tests 04/15/22 17:40: Glucometer 132H 04/15/22 23:42: Glucometer 116H 04/16/22 05:07: White Blood Count 15.1H, Red Blood Count 3.09L, Hemoglobin 8.1L, Hematocrit 26L, Mean Corpuscular Volume 85, Mean Corpuscular Hemoglobin 26, Mean Corpuscular Hemoglobin Concent 31L, Red Cell Distribution Width 17.8H, Platelet Count 218, Mean Platelet Volume 10.4, Immature Granulocyte % (Auto) 1, Neutrophils (%) (Auto) 94H, Lymphocytes (%) (Auto) 1L, Monocytes (%) (Auto) 4, Eosinophils (%) (Auto) 0, Basophils (%) (Auto) 0, Neutrophils # (Auto) 14.2H, Lymphocytes # (Auto) 0.2L, Monocytes # (Auto) 0.7, Eosinophils # (Auto) 0.0, Basophils # (Auto) 0.0, Immature Granulocyte # (Auto) 0.1, Sodium Level 146H, Potassium Level 4.1, Chloride Level 107, Carbon Dioxide Level 21, Anion Gap 18H, Blood Urea Nitrogen 68H, Creatinine 1.47H, Estimat Glomerular Filtration Rate 37, BUN/Creatinine Ratio 46, Glucose Level 102, Calcium Level 8.3L, Magnesium Level 1.9 04/16/22 10:20: Gastric Fluid Occult Blood POSITIVEH 04/16/22 11:34: Glucometer 71 04/16/22 12:02: Lactic Acid Level 1.58 04/16/22 14:26: Glucometer 95 Microbiology 04/10/22 Blood Culture - Final, Complete No growth 04/09/22 MRSA Screen - Final, Complete MRSA not isolated 04/09/22 Urine Culture - Final, Complete Pseudomonas aeruginosa Enterococcus faecalis Patient resulted labs reviewed. Pending Labs Laboratory Tests 04/16/22 10:20: Gastric Fluid Occult Blood POSITIVE 04/16/22 11:34: Glucometer 71 04/16/22 12:02: Lactic Acid Level 1.58 04/16/22 14:26: Glucometer 95 Imaging: Reviewed Imaging Report Discharge Home Medications: Active Scripts Active Reported Cephalexin 500 Mg Capsule 500 Mg PO DAILY UTI PROPHYLAXIS Miralax (Polyethylene Glycol 3350) 17 Gram Powd.pack 17 Gm PO DAILY PRN Milk of Magnesia (Magnesium Hydroxide) 400 Mg/5 Ml Oral.susp 15 Ml PO DAILY PRN Lantiseptic (Lanolin) 50 % Cream..g. 1 Applic TP DAILY PRN Iprat-Albut 0.5-3(2.5) mg/3 ml (Ipratropium/Albuterol Sulfate) 0.5 Mg-3 Mg (2.5 Mg Base)/3 Ml Ampul.neb 3 Ml IH Q6H PRN [place] (Menthol) 5.8 Mg Lozenge 5.8 Mg MM UD PRN Glycerin Adult Supp.rect 1 Each RC DAILY PRN Calcium Carbonate 500 Mg Calcium (1250 Mg) Tablet 500 Mg PO DAILY PRN Tylenol Extra Strength (Acetaminophen) 500 Mg Tablet 1,000 Mg PO TID PRN Solifenacin Succinate 10 Mg Tablet 10 Mg PO DAILY Sodium Chloride 1 Gram Tab 1 Gm PO TIDWM Potassium Chloride 10 Meq Capsule.er 10 Meq PO DAILY Metoprolol Tartrate 100 Mg Tablet 100 Mg PO BID Metformin HCl 500 Mg Tablet 500 Mg PO BID Loratadine 10 Mg Tablet 10 Mg PO DAILY Furosemide 20 Mg Tablet 20 Mg PO DAILY Flonase Allergy Relief (Fluticasone Propionate) 50 Mcg/Actuation [place].susp 1 [place] NS DAILY Docusate Sodium 100 Mg Capsule 100 Mg PO DAILY Bisacodyl 5 Mg Tablet.dr 5 Mg PO DAILY Atorvastatin Calcium 10 Mg Tablet 10 Mg PO HS Aspirin 81 Mg Tab.chew 81 Mg PO DAILY Amlodipine Besylate 10 Mg Tablet 10 Mg PO DAILY Acidophilus-Pectin Capsule (Lactobacillus Acidophilus/Pect) 75 Million Cell-100 Mg Capsule 1 Each PO BID Instructions to patient/family Please see electronic discharge instructions given to patient. Problem Qualifiers (1) DVT (deep venous thrombosis): DVT location: lower extremity LILLI JANE MD Apr 16, 2022 14:41
--- NOTE | 2022-04-16 16:24 | Discharge Summary ---
Diagnosis/Chief Complaint Date of Admission Apr 09, 2022 at 20:57 Date of Discharge Discharge Date: Apr 16, 2022 Admission Diagnosis Acute respiratory failure with hypoxia and hypercapnia Primary Care No,Local Physician Discharge Diagnosis (1) Acute respiratory failure with hypoxia and hypercapnia Status: Acute (2) DVT (deep venous thrombosis) Status: Acute (3) NSTEMI (non-ST elevation myocardial infarction) Status: Acute (4) Multiple vessel coronary artery disease Status: Acute (5) UTI (urinary tract infection) Status: Acute (6) Obesity Status: Chronic (7) HTN (hypertension) Status: Chronic (8) HLD (hyperlipidemia) Status: Chronic (9) T2DM (type 2 diabetes mellitus) Status: Chronic Discharge Summary Discharge Physical Exam Allergies: Coded Allergies: No Allergy Information Available (Unverified , 04/09/22) Vitals & I&Os Vital Signs Date Time Temp Pulse Resp B/P (MAP) Pulse Ox O2 Delivery O2 Flow Rate FiO2 04/16/22 15:00 116 13 97 NIV Bilevel 70.00 04/16/22 11:59 36.5 04/16/22 04:00 100 General Appearance: Chronically ill, Obese Respiratory: Lungs Clear Cardiovascular: Regular Rate, Rhythm Gastrointestinal: Normal Bowel Sounds, Soft Neurologic/Psychiatric: Alert, Oriented x3 Hospital Course Patient was admitted to the hospital secondary to acute hypoxic respiratory failure due to pneumonia and an NSTEMI. She did have a lower extremity DVT and was treated with therapeutic Lovenox. Cardiology was consulted and she underwent cardiac cath. This did reveal multivessel disease. No and interventions were done. Dr. Nava the insole rounder discussed this with cardiothoracic surgery and she was not a candidate for surgery due to her respiratory status. She remained on BiPAP. I did discuss with patient and family her prognosis and patient desired to remain a DNR/DNI but requested continued BiPAP use in hopes of being able to be weaned off. After multiple days of very slow weaning she was quite stable and was deemed an appropriate candidate for long-term BiPAP weaning. A referral was placed to [facility] and she was transferred there in stable condition on BiPAP. Labs (last 24 hrs) Laboratory Tests 04/15/22 17:40: Glucometer 132H 04/15/22 23:42: Glucometer 116H 04/16/22 05:07: White Blood Count 15.1H, Red Blood Count 3.09L, Hemoglobin 8.1L, Hematocrit 26L, Mean Corpuscular Volume 85, Mean Corpuscular Hemoglobin 26, Mean Corpuscular Hemoglobin Concent 31L, Red Cell Distribution Width 17.8H, Platelet Count 218, Mean Platelet Volume 10.4, Immature Granulocyte % (Auto) 1, Neutrophils (%) (Auto) 94H, Lymphocytes (%) (Auto) 1L, Monocytes (%) (Auto) 4, Eosinophils (%) (Auto) 0, Basophils (%) (Auto) 0, Neutrophils # (Auto) 14.2H, Lymphocytes # (Auto) 0.2L, Monocytes # (Auto) 0.7, Eosinophils # (Auto) 0.0, Basophils # (Auto) 0.0, Immature Granulocyte # (Auto) 0.1, Sodium Level 146H, Potassium Level 4.1, Chloride Level 107, Carbon Dioxide Level 21, Anion Gap 18H, Blood Urea Nitrogen 68H, Creatinine 1.47H, Estimat Glomerular Filtration Rate 37, BUN /Creatinine Ratio 46, Glucose Level 102, Calcium Level 8.3L, Magnesium Level 1.9 04/16/22 10:20: Gastric Fluid Occult Blood POSITIVEH 04/16/22 11:34: Glucometer 71 04/16/22 12:02: Lactic Acid Level 1.58 04/16/22 14:26: Glucometer 95 Microbiology 04/10/22 Blood Culture - Final, Complete No growth 04/09/22 MRSA Screen - Final, Complete MRSA not isolated 04/09/22 Urine Culture - Final, Complete Pseudomonas aeruginosa Enterococcus faecalis Patient resulted labs reviewed. Pending Labs Laboratory Tests 04/16/22 10:20: Gastric Fluid Occult Blood POSITIVE 04/16/22 11:34: Glucometer 71 04/16/22 12:02: Lactic Acid Level 1.58 04/16/22 14:26: Glucometer 95 Imaging: Reviewed Imaging Report Discussion & Recommendations Discharge Planning: >30 minutes discharge planning Discharge Home Medications: Active Scripts Active Reported Cephalexin 500 Mg Capsule 500 Mg PO DAILY UTI PROPHYLAXIS Miralax (Polyethylene Glycol 3350) 17 Gram Powd.pack 17 Gm PO DAILY PRN Milk of Magnesia (Magnesium Hydroxide) 400 Mg/5 Ml Oral.susp 15 Ml PO DAILY PRN Lantiseptic (Lanolin) 50 % Cream..g. 1 Applic TP DAILY PRN Iprat-Albut 0.5-3(2.5) mg/3 ml (Ipratropium/Albuterol Sulfate) 0.5 Mg-3 Mg (2.5 Mg Base)/3 Ml Ampul.neb 3 Ml IH Q6H PRN [place] (Menthol) 5.8 Mg Lozenge 5.8 Mg MM UD PRN Glycerin Adult Supp.rect 1 Each RC DAILY PRN Calcium Carbonate 500 Mg Calcium (1250 Mg) Tablet 500 Mg PO DAILY PRN Tylenol Extra Strength (Acetaminophen) 500 Mg Tablet 1,000 Mg PO TID PRN Solifenacin Succinate 10 Mg Tablet 10 Mg PO DAILY Sodium Chloride 1 Gram Tab 1 Gm PO TIDWM Potassium Chloride 10 Meq Capsule.er 10 Meq PO DAILY Metoprolol Tartrate 100 Mg Tablet 100 Mg PO BID Metformin HCl 500 Mg Tablet 500 Mg PO BID Loratadine 10 Mg Tablet 10 Mg PO DAILY Furosemide 20 Mg Tablet 20 Mg PO DAILY Flonase Allergy Relief (Fluticasone Propionate) 50 Mcg/Actuation [place].susp 1 [place] NS DAILY Docusate Sodium 100 Mg Capsule 100 Mg PO DAILY Bisacodyl 5 Mg Tablet.dr 5 Mg PO DAILY Atorvastatin Calcium 10 Mg Tablet 10 Mg PO HS Aspirin 81 Mg Tab.chew 81 Mg PO DAILY Amlodipine Besylate 10 Mg Tablet 10 Mg PO DAILY Acidophilus-Pectin Capsule (Lactobacillus Acidophilus/Pect) 75 Million Cell-100 Mg Capsule 1 Each PO BID Instructions to patient/family Please see electronic discharge instructions given to patient. Problem Qualifiers (1) DVT (deep venous thrombosis): DVT location: lower extremity LILLI JANE MD Apr 16, 2022 16:24
== END 2022-04-16 15:20 | DRG 207 ==
LOC: ICU 20:57
PROVIDERS: ADMIT Internal Medicine; ATTEND Internal Medicine
PROC: 4A023N7 Measurement of Cardiac Sampling and Pressure, Left Heart, Percutaneous Approach (ICD-10-PCS; principal; 2022-04-10)
PROC: B2111ZZ Fluoroscopy of Multiple Coronary Arteries using Low Osmolar Contrast (ICD-10-PCS; 2022-04-10)
PROC: B3101ZZ Fluoroscopy of Thoracic Aorta using Low Osmolar Contrast (ICD-10-PCS; 2022-04-10)
PROC: 5A0935A Assistance with Respiratory Ventilation, Less than 24 Consecutive Hours, High Flow/Velocity Cannula (ICD-10-PCS; 2022-04-10)
PROC: 5A1955Z Respiratory Ventilation, Greater than 96 Consecutive Hours (ICD-10-PCS; 2022-04-11)
DX: J96.01 Acute respiratory failure with hypoxia (principal); I21.4 Non-ST elevation (NSTEMI) myocardial infarction; I50.33 Acute on chronic diastolic (congestive) heart failure; J18.9 Pneumonia, unspecified organism; R57.0 Cardiogenic shock; I82.4Z1 Acute embolism and thrombosis of unspecified deep veins of right distal lower extremity; N39.0 Urinary tract infection, site not specified; E22.2 Syndrome of inappropriate secretion of antidiuretic hormone; Z66 Do not resuscitate; J44.0 Chronic obstructive pulmonary disease with (acute) lower respiratory infection; J96.02 Acute respiratory failure with hypercapnia; I11.0 Hypertensive heart disease with heart failure; I70.201 Unspecified atherosclerosis of native arteries of extremities, right leg; E78.5 Hyperlipidemia, unspecified; I25.10 Atherosclerotic heart disease of native coronary artery without angina pectoris; I27.20 Pulmonary hypertension, unspecified; I08.0 Rheumatic disorders of both mitral and aortic valves; E66.9 Obesity, unspecified; Z68.39 Body mass index [BMI] 39.0-39.9, adult; Z86.73 Personal history of transient ischemic attack (TIA), and cerebral infarction without residual deficits
CPT/HCPCS: 36221; 36415; 36600; 71045; 71275; 80048; 80061; 81000; 82271; 82805; 82947; 83605; 83735; 83880; 84145; 84484; 85007; 85025; 85027; 85347; 87040; 87077; 87081; 87088; 87186; 93005; 93306; 93458; 93970; 94640; 94660